=== PATIENT | male | born 2000 | race Caucasian/White ===

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

== ENCOUNTER 2022-10-26 23:11 | Emergency (ER) | payer MEDICAID, SELFPAY ==
[2022-10-26 23:13] VITALS: BP 135/82; PULSE 90; RESP 16; TEMP 35.8; O2SAT 97; BMI 46.5
[2022-10-26 23:16] VITALS: BP 135/82; PULSE 90; RESP 16; TEMP 35.8; O2SAT 97
--- NOTE | 2022-10-27 01:08 | EDS_ITS ---
HPI History of Present Illness Chief Complaint: Male Pain/Injury Informant: patient Narrative Narrative: Patient is a 22-year-old male with no significant past medical history. He states that a few hours prior to arrival he was having sexual intercourse with his . He states that during the course of this he somehow sustained an injury to his penis and he noticed that there was blood present. He denies any history of bleeding disorder or blood thinner use but with trauma to the penis and bleeding he was concerned and therefore comes in for evaluation. PFSH PFSH Medical History no medical history no medical history Home Medications albuterol 90 mcg/actuation aerosol inhaler 3 mcg inhalation Q4H PRN PRN sob 04/06/21 [History Last Taken Unknown] Allergy/AdvReac Type Severity Reaction Status Date / Time No Known Allergies Allergy Verified 10/26/22 23:13 Family History no significant family his Social History Smoking Status: Current some day smoker tobacco type: cigarettes ROS ROS ED Constitutional Constitutional ED: Denies chills or fever(s) ENT ENT ED: Denies sore throat Cardiovascular Cardiovascular: Denies chest pain Respiratory/Chest Respiratory/Chest: Denies cough or dyspnea Gastrointestinal Gastrointestinal: Denies abdominal pain, diarrhea, nausea or vomiting Genitourinary Genitourinary ED: Reports other Details: Positive penile bleeding ; Denies dysuria or hematuria Musculoskeletal Musculoskeletal: Denies myalgias Integumentary Denies rash Neurologic Neurologic: Denies headache(s) Hematologic/Lymphatic Hematologic/Lymphatic: Denies easy bleeding or easy bruising EXAM Physical Exam Const Vital Signs: 10/26/22 23:13 10/26/22 23:16 Temperature 96.5 F L 96.5 F L Temperature Source Temporal Temporal Pulse Rate 90 90 Respiratory Rate 16 16 Blood Pressure 135/82 H 135/82 H Blood Pressure Mean 99 99 Pulse Ox 97 97 Oxygen Delivery Method Room Air Room Air Positive well nourished, well developed and obese General Appearance ED: well developed Nutritional Appearance: obese HEENT HEENT Narrative: Normocephalic atraumatic Eyes PERRL and EOMs intact bilaterally General Eye ED: Negative for pale conjunctiva Neck supple Resp normal respiratory effort and clear to auscultation bilaterally Cardio regular rate and regular rhythm Narrative: Normal uncircumcised male. There is no blood or discharge from the urethral meatus. No testicular masses or swelling. No secondary changes to suggest Johnson's gangrene. Foreskin was retracted and there is a dermal layer triangular shaped laceration along the volar aspect of the penile shaft and head with minimal ooze of blood and no foreign body. Wound is approximately 1 cm in size. Remainder of the exam is normal Extremity normal to inspection Neuro oriented x3 and CN's II-XII intact bilaterally Sensorium / Orientation: alert Psych mental status grossly normal Skin no rashes or lesions noted Skin Narrative: Dermal layer laceration to the penis as documented above MDM MDM MDM Narrative Medical decision making narrative: Patient presented to the ER with stable vitals. He reported blood from the penis but on exam there is no blood at the urethral meatus and no signs of testicular masses or infection. Physical exam did document there was a super ficial laceration along the shaft and head of the penis where the foreskin attaches and this correlates with the fact symptoms occurred during vigorous sexual activity. I discussed with patient the potential of throwing a few sutures into the area to resolve the laceration and bleeding but he does not want that performed. Therefore at this time he will be given Surgicel to place over top the wound and help with coagulation. He understands that the wound will heal by secondary intention but he will need to refrain from sexual activity and/or masturbation for the next 1-2 weeks. Patient states he is agreeable to this plan of care. He does not have signs of phimosis or paraphimosis or testicular infection and the bleeding is external not coming from the bladder or urethra prostate and therefore there is no need for further work-up and he is otherwise safe for discharge. History & Record Review Discussion w/independent historian: Patient Discharge Plan Triage Chief Complaint: Male Pain/Injury ED Provider: Salomon Graham Dx/Rx/DC Orders Clinical Impression: Laceration of penis Instructions: ED Laceration, Old: Not Sutured Prescriptions: No Action albuterol 90 mcg/actuation Aerosol 3 mcg INHALATION Q4H PRN PRN (Reason: sob) Primary Care Provider: Maurisio Ramirez Referrals: Maurisio Ramirez MD [Primary Care Provider] - Activity Restrictions/Additional Instructions: Allow the Gelfoam/Surgicel to stay in place for the next few hours. Shower in the morning and wash it off and if bleeding persists she may use more Gelfoam as needed. The area of injury/skin tear will heal on its own over the course of the next 1 to 2 weeks but he need to refrain from sexual activity and/or masturbation during this time. If you have any further concerns or worsening symptoms please return to the ER for repeat evaluation Disposition Disposition: Home, Self Care Discharge Date/Time: 10/27/22 01:18
[2022-10-27] MEDS: Gelfoam 12-7 MM Sponge (1) 1 EACH TOPICAL (01:17)
== END 2022-10-27 01:18 | disposition home or self-care (01) ==
PROVIDERS: Emergency Provider Emergency Medicine; PCP Family Medicine; Visit Provider Emergency Medicine
DX: S31.21XA Laceration without foreign body of penis, initial encounter (principal); F17.210 Nicotine dependence, cigarettes, uncomplicated; E66.9 Obesity, unspecified; X58.XXXA Exposure to other specified factors, initial encounter
CPT/HCPCS: 99283

== ENCOUNTER 2023-02-06 10:13 | Emergency (ER) | payer MEDICAID, SELFPAY ==
[2023-02-06 10:15] VITALS: BP 135/66; PULSE 89; RESP 14; TEMP 36.3; O2SAT 98; BMI 45.8
--- NOTE | 2023-02-06 10:40 | EX.ED.DYSGE1 ---
HPI History of Present Illness Chief Complaint: Dizziness Informant: patient Narrative Narrative: 22-year-old male presenting to the emergency room with dizziness. Patient states that over the past 4 days he has had cough and some nasal congestion. He notes 1 bout of diarrhea. States that he woke this morning and felt like a truck that hit him . He does not know about any fever. He denies sore throat or vomiting. He was sitting on his dresser at the end of the bed putting his boots on when he states that his right leg was tingling when he went to stand up he got dizzy and his whole right side was tingling. 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 He denies any vertiginous symptoms. He describes the dizziness is more of a lightheaded sensation. He states that his ears typically have cerumen in them but he has not had any change in hearing. PFSH PFSH Home Medications albuterol 90 mcg/actuation aerosol inhaler 3 mcg inhalation Q4H PRN PRN sob 04/06/21 [History Last Taken Unknown] Allergy/AdvReac Type Severity Reaction Status Date / Time No Known Allergies Allergy Verified 02/06/23 10:14 Social History Smoking Status: Current some day smoker tobacco type: cigarettes ROS ROS ED ROS Narrative Dizziness lightheadedness Constitutional Constitutional ED: Denies chills, fever(s) or weight loss Eyes Eyes: Denies change in vision or diplopia ENT ENT ED: Reports rhinorrhea; Denies ear pain or sore throat Cardiovascular Cardiovascular: Denies chest pain, orthopnea, palpitations or racing heartbeat Respiratory/Chest Respiratory/Chest: Reports cough; Denies dyspnea or orthopnea Gastrointestinal Gastrointestinal: Denies abdominal pain, diarrhea, nausea or vomiting Genitourinary Genitourinary ED: Denies dysuria, hematuria or urinary frequency Musculoskeletal Musculoskeletal: Denies arthralgias or myalgias Integumentary Denies abscess or rash Neurologic Neurologic: Reports paresthesias; Denies headache(s) or weakness Psychiatric Psychiatric: Denies anxiety, depression, suicidal ideation or suicidal thoughts Endocrine Endocrinology: Denies polydipsia, polyphagia or polyuria Allergic/Immunologic Allergic/Immunologic ED: Denies mouth swelling, tongue swelling or urticaria EXAM Physical Exam Const Vital Signs: 02/06/23 10:15 02/06/23 10:57 02/06/23 10:58 Temperature 97.3 F L Temperature Source Temporal Pulse Rate 89 77 Respiratory Rate 14 16 Respiratory Effort Normal Non-Labored Respiratory Pattern Normal Blood Pressure 135/66 H Blood Pressure Mean 89 Pulse Ox 98 100 Oxygen Delivery Method Room Air Room Air Positive well nourished, well developed and obese General Appearance ED: well developed Nutritional Appearance: obese HEENT Reports normocephalic, head/scalp atraumatic and moist mucous membranes HEENT Narrative: Bilateral cerumen impaction Nasal congestion Eyes PERRL and EOMs intact bilaterally Neck no lymphadenopathy, supple and no JVD Resp normal respiratory effort and clear to auscultation bilaterally Cardio regular rate, regular rhythm and no murmurs GI normal to inspection, nondistended, normoactive bowel sounds and non-tender Palpation: soft Back/Spine no CVA tenderness and normal ROM Extremity normal to inspection General Extremety ED: Negative for edema General Extremity: Negative for edema Neuro oriented x3 and CN's II-XII intact bilaterally Sensorium / Orientation: alert Motor Exam: strength 5/5 throughout Psych mental status grossly normal Mood & Affect: Negative for depressed or tearful Skin no rashes or lesions noted and no wounds MDM MDM MDM Narrative Medical decision making narrative: White count 5.9 with hemoglobin 16.2. BMP shows a glucose of 95. Normal electrolytes. Patient's COVID and influenza are negative. RSV is positive. Clinically I think the patient probably experienced some vertigo or disequilibrium related to the nasal congestion which is due to the RSV infection. At this point I believe his treatment will be supportive care. Follow-up as needed return if worsening History & Record Review Discussion w/independent historian: Patient Lab Data Attestation: I reviewed the patient's lab results. Labs: Laboratory Results - last 24 hr 02/06/23 02/06/23 10:49 10:52 WBC 5.9 RBC 5.77 Hgb 16.2 Hct 49.1 MCV 85.1 MCH 28.1 MCHC 33.0 RDW Std Deviation 41.5 RDW Coeff of [place]yl[place] 13.4 Plt Count 205 MPV 11.8 Immature Gran % (Auto) 0.500 Neut % (Auto) 67.1 Lymph % (Auto) 14.2 L [place] % (Auto) 12.4 H Eos % (Auto) 5.1 H Baso % (Auto) 0.7 Absolute Neuts (auto) 4.0 Absolute Lymphs (auto) 0.84 Nucleated RBC % 0 Sodium 139 Potassium 4.3 Chloride 106 Carbon Dioxide 31.0 Anion Gap 2 L BUN 13 Creatinine 0.86 Estim Creat Clear Calc 119.19 Est GFR (MDRD) Af Amer 144 Est GFR (MDRD) Non-Af 119 BUN/Creatinine Ratio 15.1 Glucose 95 Calcium 8.9 Discharge Plan Triage Chief Complaint: Dizziness ED Provider: Akbar Villafuerte Dx/Rx/DC Orders Clinical Impression: RSV infection, Dizziness Instructions: RSV (Respiratory Syncytial Virus) Prescriptions: No Action albuterol 90 mcg/actuation Aerosol 3 mcg INHALATION Q4H PRN PRN (Reason: sob) Primary Care Provider: Maurisio Ramirez Referrals: Maurisio Ramirez MD [Primary Care Provider] - As Needed Disposition Disposition: Home, Self Care
[2023-02-06 10:57] VITALS: PULSE 77; RESP 16; O2SAT 100
[2023-02-06 11:04] LABS: Absolute Lymphocyte Count 0.84 X10^3/uL (0.83-4.51); Basophil# 0.04 X10^3/uL; Basophil% 0.7 % (0-1); Eosinophils% 5.1 % (0-5); Hematocrit 49.1 % (40-54); Hemoglobin 16.2 g/dL (13.0-16.5); Lymphocyte # 0.84 X10^3/ul (0.83-4.51); Lymphocyte % 14.2 % (19-41); Mean Corpuscular Hgb 28.1 pg (27.0-32.0); Mean Corpuscular Volume 85.1 fL (80-94); Mean Platelet Vol. 11.8 fl (6.2-12.0); Monocyte# 0.73 X10^3/uL; Monocyte% 12.4 % (0-10); NRBC Flagged by Analyzer 0 % (0-5); Neutrophil # 3.96 X10^3/uL (2.7-7.7); Neutrophil % 67.1 % (47-70); Platelet Count 205 K/mm3 (150-450); RBC Distribution Width CV 13.4 % (11.6-14.6); RBC Distribution Width SD 41.5 fl (35.1-43.9); Red Blood Count 5.77 M/mm3 (4.6-6.2); White Blood Count 5.9 K/mm3 (4.4-11.0)
[2023-02-06 11:13] LABS: Anion Gap 2 (5-15); BUN 13 mg/dL (7-18); BUN/Creat Ratio 15.1 RATIO (10-20); Calcium,Total 8.9 mg/dL (8.5-10.1); Chloride 106 mmol/L (98-107); Creatinine, Serum 0.86 mg/dL (0.70-1.30); EST Glomerular Filtration Rate 119 mL/min (>60); Est Glom Filt Rate - Afr Amer 144 mL/min (>60); Estimated Creatinine Clearance 119.19 ml/min; Glucose 95 mg/dL (74-106); Potassium 4.3 mmol/L (3.5-5.1); Sodium Level 139 mmol/L (136-145)
--- OUTSIDE RECORDS SUMMARY | 2023-02-06 11:27 | XMS RPT_ITS | CCD ---
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 Text: CC: Patient presents with: Cough: Runny nose x 2 days; upper back pain x 2 weeks HPI Osmin Chairez is a 22 year old male who presents today for above. Respiratory symptoms for 3 days Associated symptoms includes nasal congestion, rhinorrhea, cough, and fatigue. Denies headache, fever, ear pain, wheezing, and dyspnea. Treatments tried include nothing so far. Sick contacts: no. History of asthma, frequent episodes of bronchitis, chronic bronchitis, bronchiectasis or COPD: Yes asthma Smoker: yes Seasonal/environmental allergies: Yes He also reports pain across the upper back/shoulder area x 2 weeks. He has a very physical job requiring heavy lifting. Denies injury. Took ibuprofen for the first time last night with relief of pain. He has a history of arthritis in both shoulders. Review of Systems See HPI PAST MEDICAL HISTORY Diagnosis Date Obesity 06/12/2012 PMH - PAST MEDICAL HISTORY OF pyloric stenosis Strabismic amblyopia Unspecified asthma(493.90) PAST SURGICAL HISTORY Procedure Laterality Date KNEE SURGERY HX 07/2015 Dr. Kervin ANTHONY PAST SURGICAL HISTORY OF 05/13 repair pyloric stenosis PAST SURGICAL HISTORY OF 01/09/09 left eye surgery TYMPANOSTOMY LOCAL/TOPICAL ANESTHESIA 12/10/05 ALLERGIES Patient has no known allergies. MEDICATIONS dicyclomine (BENTYL) 20 mg tablet Take 1 tablet by mouth four times a day as needed for up to 7 days. cetirizine (ZYRTEC) 10 mg tablet Take 1 tablet by mouth once daily. (Patient not taking: Reported on 12/04/2020) FAMILY HISTORY Problem Relation Age of Onset other ([place]) Father age 44 Hypertension Paternal Grandmother Diabetes Paternal Grandmother Asthma Paternal Grandfather Seizures Paternal Grandfather aunt other (gallbladder) Paternal Grandfather maternal and paternal side Social History Tobacco Use Smoking status: Some Days Types: Cigarettes Passive exposure: Yes Smokeless tobacco: Never Tobacco comments: mother, father, and sister smoke inside 03/06/2022- smokes 2 cigarettes every other day Vaping Use Vaping Use: Never used Substance Use Topics Alcohol use: Not Currently Drug use: No BP 118/62 Pulse 87 Temp (!) 35.9 ?C (96.7 ?F) Resp 20 Wt 124.3 kg (274 lb) SpO2 97% BMI 44.22 kg/m? Physical Exam Constitutional: General: He is not in acute distress. Appearance: He is not ill-appearing. HENT: Right Ear: Tympanic membrane, ear canal and external ear normal. Left Ear: Tympanic membrane, ear canal and external ear normal. Nose: Nose normal. Mouth/Throat: Mouth: Mucous membranes are moist. Pharynx: Oropharynx is clear. Eyes: Conjunctiva/sclera: Conjunctivae normal. Cardiovascular: Rate and Rhythm: Normal rate and regular rhythm. Heart sounds: Normal heart sounds. No murmur heard. Pulmonary: Effort: Pulmonary effort is normal. Breath sounds: Normal breath sounds. No wheezing, rhonchi or rales. Musculoskeletal: Right shoulder: No swelling or deformity. Normal range of motion. Left shoulder: No swelling or deformity. Normal range of motion. Arms: Cervical back: Neck supple. Comments: Tenderness along shoulders posteriorly and upper back posteriorly Lymphadenopathy: Cervical: No cervical adenopathy. Neurological: Mental Status: He is alert. ASSESSMENT/PLAN: 1. Acute pain of both shoulders - ICD9: 719.41, ICD10: M25.511, M25.512 (primary diagnosis) Musculoskeletal pain secondary to overuse Take ibuprofen 3 times a day for the next few days. Also discussed heat, ice, massage and topical medications Follow-up with PCP in 1-2 weeks if no improvement or sooner if worsening 2. Viral URI with cough - ICD9: 465.9, ICD10: J06.9 - Discussed viral etiology and rationale for treatment. - Symptomatic treatment with prn analgesia - Supportive care with fluids and rest - The patient may also use OTC cough and cold meds as needed. - Follow up in 7 to 10 days if symptoms persist or sooner if worsening of symptoms Prescription instructions reviewed with patient as applicable. Potential red flag symptoms discussed with the patient. Reviewed appropriate action plan to take if red flag symptoms occur. Patient agreeable to treatment plan. Ashley Hu APRN.CNP [facility] 11-16-2022 Instructions Ashley Hu APRN.CNP - 11/16/2022 2:41 PM EDT Take ibuprofen 600 mg three times a day for the next 3 to 4 days, then as needed. Follow-up with your primary care provider in 1-2 weeks if the shoulder pain does not improve. documented in this encounter [facility] 11-16-2022 History of Presen t illness Narrative Images from the original note were not included. CC: Patient presents with: Cough: Runny nose x 2 days; upper back pain x 2 weeks HPI Osmin Chairez is a 22 year old male who presents today for above. Respiratory symptoms for 3 days Associated symptoms includes nasal congestion, rhinorrhea, cough, and fatigue. Denies headache, fever, ear pain, wheezing, and dyspnea. Treatments tried include nothing so far. Sick contacts: no. History of asthma, frequent episodes of bronchitis, chronic bronchitis, bronchiectasis or COPD: Yes asthma Smoker: yes Seasonal/environmental allergies: Yes He also reports pain across the upper back/shoulder area x 2 weeks. He has a very physical job requiring heavy lifting. Denies injury. Took ibuprofen for the first time last night with relief of pain. He has a history of arthritis in both shoulders. Review of Systems See HPI PAST MEDICAL HISTORY Diagnosis Date Obesity 06/12/2012 PMH - PAST MEDICAL HISTORY OF pyloric stenosis Strabismic amblyopia Unspecified asthma(493.90) PAST SURGICAL HISTORY Procedure Laterality Date KNEE SURGERY HX 07/2015 Dr. Galeana [facility] PAST SURGICAL HISTORY OF 05/13 repair pyloric stenosis PAST SURGICAL HISTORY OF 01/09/09 left eye surgery TYMPANOSTOMY LOCAL/TOPICAL ANESTHESIA 12/10/05 ALLERGIES Patient has no known allergies. MEDICATIONS dicyclomine (BENTYL) 20 mg tablet Take 1 tablet by mouth four times a day as needed for up to 7 days. cetirizine (ZYRTEC) 10 mg tablet Take 1 tablet by mouth once daily. (Patient not taking: Reported on 12/04/2020) FAMILY HISTORY Problem Relation Age of Onset other ([place]) Father age 44 Hypertension Paternal Grandmother Diabetes Paternal Grandmother Asthma Paternal Grandfather Seizures Paternal Grandfather aunt other (gallbladder) Paternal Grandfather maternal and paternal side Social History Tobacco Use Smoking status: Some Days Types: Cigarettes Passive exposure: Yes Smokeless tobacco: Never Tobacco comments: mother, father, and sister smoke inside 03/06/2022- smokes 2 cigarettes every other day Vaping Use Vaping Use: Never used Substance Use Topics Alcohol use: Not Currently Drug use: No BP 118/62 Pulse 87 Temp (!) 35.9 C (96.7 F) Resp 20 Wt 124.3 kg (274 lb) SpO2 97% BMI 44.22 kg/m Physical Exam Constitutional: General: He is not in acute distress. Appearance: He is not ill-appearing. HENT: Right Ear: Tympanic membrane, ear canal and external ear normal. Left Ear: Tympanic membrane, ear canal and external ear normal. Nose: Nose normal. Mouth/Throat: Mouth: Mucous membranes are moist. Pharynx: Oropharynx is clear. Eyes: Conjunctiva/sclera: Conjunctivae normal. Cardiovascular: Rate and Rhythm: Normal rate and regular rhythm. Heart sounds: Normal heart sounds. No murmur heard. Pulmonary: Effort: Pulmonary effort is normal. Breath sounds: Normal breath sounds. No wheezing, rhonchi or rales. Musculoskeletal: Right shoulder: No swelling or deformity. Normal range of motion. Left shoulder: No swelling or deformity. Normal range of motion. Arms: Cervical back: Neck supple. Comments: Tenderness along shoulders posteriorly and upper back posteriorly Lymphadenopathy: Cervical: No cervical adenopathy. Neurological: Mental Status: He is alert. ASSESSMENT/PLAN: 1. Acute pain of both shoulders - ICD9: 719.41, ICD10: M25.511, M25.512 (primary diagnosis) Musculoskeletal pain secondary to overuse Take ibuprofen 3 times a day for the next few days. Also discussed heat, ice, massage and topical medications Follow-up with PCP in 1-2 weeks if no improvement or sooner if worsening 2. Viral URI with cough - ICD9: 465.9, ICD10: J06.9 - Discussed viral etiology and rationale for treatment. - Symptomatic treatment with prn analgesia - Supportive care with fluids and rest - The patient may also use OTC cough and cold meds as needed. - Follow up in 7 to 10 days if symptoms persist or sooner if worsening of symptoms Prescription instructions reviewed with patient as applicable. Potential red flag symptoms discussed with the patient. Reviewed appropriate action plan to take if red flag symptoms occur. Patient agreeable to treatment plan. Ashley Hu APRN.SYLVAIN documented in this encounter [facility] 09-05-2022 Hospital Discharg e instructions Patient Education 09/05/2022 10:07:04 What is Peripheral Neuropathy? What is Peripheral Neuropathy? Peripheral neuropathy symptoms often start in the toes and move up the foot. Peripheral neuropathy is a disease of the nerves. It most often starts in your feet and may also eventually affect the arms. It can affect sensory, motor, or both functions. It may cause pain or make you unable to sense pain. Sometimes, weakness occurs as well. Lack of pain and weakness makes you more likely to injure yourself without knowing it. But you can learn ways to protect your feet from injury. When nerves are diseased Nerves in your feet carry signals to your brain. Your brain reads those signals and interprets them as sensations. When nerves in your feet are diseased, signals may be disrupted or changed. The result may be a lack of feeling (numbness) in your feet or other symptoms, such as tingling or pain. Symptoms mask pain Symptoms of peripheral neuropathy usually start in your toes. The symptoms slowly spread up your feet and legs as more nerve is affected. These symptoms may decrease sensation in your feet or mask pain. Without pain, you may not notice a cut or even a bone fracture. Cuts may become infected. Fractures may heal poorly and lead to foot deformity. Common causes of peripheral neuropathy Some common causes of peripheral neuropathy include: Diabetes or other endocrine disorders Toxins (such as alcohol) Nutritional deficiencies (such as Vitamin B-12) Kidney disease Injury Repetitive stress (such as carpal tunnel syndrome) Autoimmune disease Cancer and tumors Chemotherapy cancer treatment Arthritis Advanced age Neurological disorders Infection Diagnosis and treatment Diagnosis of peripheral neuropathy includes a complete history and physical exam. Tests include blood tests and imaging often help find the cause. Special nerve tests are often helpful including nerve conduction velocity studies (NCV), and electromyography (EMG). NCV helps find evidence of poor conduction of nerve signals. EMG helps tell whether symptoms are caused by muscle or nerve disorders. Treatment focuses on treating the underlying disorder and treating the symptoms using medicines, injections, TENS (transcutaneous electrical nerve stimulation), acupuncture, massage, and others. 2090-0090 [employer]. [address] [place] [address], [place] [address]. All rights reserved. This information is not intended as a substitute for professional medical care. Always follow your healthcare professional's instructions. Follow Up Care 09/05/2022 08:28:41 With:DO QUITA HUFF DO Address: [facility] [address] [address] When:2-[address] [facility] Marydi Ford 09-05-2022 Note Discharge Instructions Thank you for allowing [facility] to assist you with your healthcare needs. The following is important discharge information regarding your hospital visit. Diagnosis from Today's Visit Numbness/tingling Peripheral neuropathy What to Do Next Instructions from Your Care Team Discharge Return to Work, School, or Sports (Return to Work, School, or Sports) - Ordered -- 09/05/22, 09/06/22, May return to: work, 09/05/22 10:02:00 EDT Post Acute Orders No qualifying data available. You Need to Schedule the Following Appointments Follow Up with DO QUITA HUFF DO When Within 2-4 days Where: [address] [place] [phone] Allergies NKA Medications Please ask your primary doctor or pharmacist before taking any other medication not listed, including over the counter drugs, herbal medications, vitamins and or supplements as they may interact with your home medications. What How Much When Instructions Last Dose New naproxen (Anaprox-DS 550 mg oral tablet) 1 tab(s) by mouth Every 12 hours as needed for as needed for pain Printed Prescription Please take this list to your next doctor s visit. Bring all medications you take, including over the counter medications, herbals and other supplements with you to your doctor s visit. Patients and families are reminded to discard old lists and to update any records with all medication providers or retail pharmacies. Education Materials What is Peripheral Neuropathy? Peripheral neuropathy symptoms often start in the toes and move up the foot. Peripheral neuropathy is a disease of the nerves. It most often starts in your feet and may also eventually affect the arms. It can affect sensory, motor, or both functions. It may cause pain or make you unable to sense pain. Sometimes, weakness occurs as well. Lack of pain and weakness makes you more likely to injure yourself without knowing it. But you can learn ways to protect your feet from injury. When nerves are diseased Nerves in your feet carry signals to your brain. Your brain reads those signals and interprets them as sensations. When nerves in your feet are diseased, signals may be disrupted or changed. The result may be a lack of feeling (numbness) in your feet or other symptoms, such as tingling or pain. Symptoms mask pain Symptoms of peripheral neuropathy usually start in your toes. The symptoms slowly spread up your feet and legs as more nerve is affected. These symptoms may decrease sensation in your feet or mask pain. Without pain, you may not notice a cut or even a bone fracture. Cuts may become infected. Fractures may heal poorly and lead to foot deformity. Common causes of peripheral neuropathy Some common causes of peripheral neuropathy include: Diabetes or other endocrine disorders Toxins (such as alcohol) Nutritional deficiencies (such as Vitamin B-12) Kidney disease Injury Repetitive stress (such as carpal tunnel syndrome) Autoimmune disease Cancer and tumors Chemotherapy cancer treatment Arthritis Advanced age Neurological disorders Infection Diagnosis and treatment Diagnosis of peripheral neuropathy includes a complete history and physical exam. Tests include blood tests and imaging often help find the cause. Special nerve tests are often helpful including nerve conduction velocity studies (NCV), and electromyography (EMG). NCV helps find evidence of poor conduction of nerve signals. EMG helps tell whether symptoms are caused by muscle or nerve disorders. Treatment focuses on treating the underlying disorder and treating the symptoms using medicines, injections, TENS (transcutaneous electrical nerve stimulation), acupuncture, massage, and others. [id number] [employer]. [address] [place] [address]. All rights reserved. This information is not intended as a substitute for professional medical care. Always follow your healthcare professional's instructions. Additional Information VACCINATE! IT SAVES LIVES! Members of the community who have not yet received the COVID-19 vaccine and would like to receive it can visit one of [facility] vaccine clinics. There are many vaccine clinic locations within the [facility]. For locations and available times, please visit [email or web address] [email or web address] It is important to note that some COVID mobile vaccine clinics are held outdoors and may be canceled in rainy or stormy conditions. To learn more about pediatric vaccinations (ages 5-11), we invite you to visit the [facility] webpage. [email or web address].[email or web address]/p [email or web address]-Yxmqr-Oiccludstwr-Freq [email or web address]-[email or web address] To learn more about the COVID-19 vaccine, we invite you to visit the CDC website for a list of frequently asked questions. https://www.cdc.gov/coronavirus/ 2019-ncov/vaccines/faq.html [facility] Patient Portal Access Instructions: Stay connected with your healthcare team and access your personal medical information anytime with the [facility] Patient Portal. If you would like a full copy of your medical records please contact the [facility] Medical Records Department Friday through Friday between 8a.m. and 4:30p.m. Please follow the directions below to access the portal: 1.Access the email account you provided upon registration to the hospital.2.Look for an invitation email from [facility].3.Open the email and access the invitation link: Accept Invitation to [facility].Fill in the required rees to create your account. Sign into [email or web address] with your username and password that you created in the above steps to stay up to date. You can then view a summary of results, a summary of your visits, and the ability to download your summaries to your computer or send the information securely to a physician. Remember that your healthcare information is confidential, so carefully consider who you will allow to register on the [facility] Patient Portal for access to your information. You can also access the [facility] Patient Portal on the [employer] good. Simply click on Health Records under Health Data and then click on the [employer] logo. HOW TO SAFELY DISPOSE OF PRESCRIPTION MEDICATIONS Please use one of the following methods to safely dispose of your unused medications. 1.Use a drug disposal kit: the drug disposal pouch allows you to safely discard your old and unused drugs. Ask your nurse to give you one when you are discharged.2.Visit a local take-back location: Many local pharmacies and police departments have programs that collect old and unwanted prescription drugs. Call your local pharmacy or go to http://[employer]/7W5Bo0e to find one close to you.3.Make use of household items: Use cat litter or old coffee grounds to dispose medications if other options are not available. Mix your drugs with these household products, seal them in an airtight container and throw it into the garbage. Call [facility]: [phone] to be sure your drugs can be disposed of in this way. Some medicines may require a different approach.4.Never flush your medications down the toilet. IF YOU HAVE BEEN PRESCRIBED AN OPIOIDS FOR PAIN If you have been prescribed an opioid (such as hydrocodone, oxycodone or morphine), it is critical to understand the possible side effects and risks of opioid pain medications. Even when taken as directed, opioids can have several side effects including: Tolerance, meaning you might need to take more of a medication for the same pain relief. Nausea, vomiting and/or constipation. Sleepiness, dizziness, dry mouth, confusion, depression or itching. Physical dependence, meaning you have withdrawal symptoms when a medication is stopped ? this can develop within a few days. KNOW YOUR RESPONSIBILITIES It is important to know exactly how much and how often to take the opioid pain medications you are prescribed. Never take opioids in higher amounts or more often than prescribed. Do not combine opioids with alcohol or other drugs that cause drowsiness, such as benzodiazepines, also known as benzos, including diazepam and alprazolam, muscle relaxants or sleep aids. Never sell or share prescription opioids. This is illegal. Store opioids in a secure place and out of reach of others (including children, family, friends and visitors). The last page(s) of this document has been signed and retained as a CHART COPY Signatures Patient Education Materials What is Peripheral Neuropathy? Medication Leaflets My discharge plan and instructions have been reviewed and explained to me and IMIHAELA AUSTIN G understand my current condition and have read and understand these discharge instructions. I have received a written copy of the plan/instructions. If I have questions, I am aware that I should contact my doctor. Patient/Drug Abuse Worker Signature: Date/Time: Relationship to Patient: Witness Name/Signature: Date/Time: [facility] 09-05-2022 Note ORIGINAL EXAMINATION: THREE XRAY VIEWS OF THE LEFT KNEE 09/05/2022 9:12 am COMPARISON: None. HISTORY: ORDERING SYSTEM PROVIDED HISTORY: Reason for Exam: pain FINDINGS: There is no acute fracture or dislocation. The joint spaces of the knee are well maintained without significant degenerative changes. Question small suprapatellar joint effusion. There are multiple osteochondromas/exostoses seen adjacent to the knee joint involving the femur, proximal tibia, and posterior aspect of the proximal fibula. Question lucent lesion within the distal femur. A few linear opaque densities are seen of the medial aspect of the distal femur. These appear likely surgical in nature. IMPRESSION: No acute fracture or dislocation or significant degenerative changes. 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 Correlate with patient history. Consider outpatient MRI of the knee for further evaluation to evaluate for any atypical change. Interpreted by: Edwar Flores MD Preliminary Report By: Edwar Flores MD Electronically signed By Edwar Flores MD Dictated Date: 09/05/2022 9:28:42 AM Prelim Date: 09/05/2022 9:34:06 AM Sign Date: 09/05/2022 9:34:06 AM Ordering Provider: ABHINAV VÁZQUEZ [facility] 09-05-2022 Note ORIGINAL EXAMINATION: THREE XRAY VIEWS OF THE RIGHT ANKLE 09/05/2022 9:12 am COMPARISON: None. HISTORY: ORDERING SYSTEM PROVIDED HISTORY: Reason for Exam: pain FINDINGS: The underlying osseous structures appear well mineralized without evidence of fracture or dislocation. The ankle mortise is well maintained. Postsurgical screw is seen of the medial malleolus without evidence of failure or loosening. A few small exostoses are seen of the distal tibia and fibula. There is no significant soft tissue swelling. No radiopaque foreign body is seen. IMPRESSION: No acute process of the ankle is seen. 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 Interpreted by: Edwar Flores MD Preliminary Report By: Edwar Flores MD Electronically signed By Edwar Flores MD Dictated Date: 09/05/2022 9:27:49 AM Prelim Date: 09/05/2022 9:35:38 AM Sign Date: 09/05/2022 9:35:38 AM Ordering Provider: [facility] 09-04-2022 Note HNO ID: [id number] Author: Salazar Iverson APRN.ASSISTANT SOFTBALL COACH Service: ? Author Type: Nurse Practitioner Type: Progress Notes Filed: 09/04/2022 2:29 PM Note Text: Subjective HPI HPI Osmin Chairez is a 22 year old male who presents today for CC of cough. This started 3 weeks ago/improving. Has tried otc medication for relief. Symptoms are worsened by nothing. Risk factors hx of asthma. Leg numbness after hearing about fathers heart disease few weeks ago. Intermittent back pain. .Patient presents with: Cough: X 3 weeks PAST MEDICAL HISTORY Diagnosis Date Obesity 06/12/2012 PMH - PAST MEDICAL HISTORY OF pyloric stenosis Strabismic amblyopia Unspecified asthma(493.90) PAST SURGICAL HISTORY Procedure Laterality Date KNEE SURGERY HX 07/2015 Dr. Kervin ANTHONY PAST SURGICAL HISTORY OF 05/13 repair pyloric stenosis PAST SURGICAL HISTORY OF 01/09/09 left eye surgery TYMPANOSTOMY LOCAL/TOPICAL ANESTHESIA 12/10/05 ALLERGIES Patient has no known allergies. MEDICATIONS albuterol HFA (PROVENTIL HFA, VENTOLIN HFA) 90 mcg/actuation inhaler Inhale 2 Puffs as instructed every 4 hours as needed for wheezing/shortness of breath. SYMBICORT 160-4.5 mcg/actuation inhaler Inhale 2 Puffs as instructed twice daily. albuterol HFA (VENTOLIN HFA) 90 mcg/actuation inhaler Inhale 2 Puffs as instructed every 4 hours as needed for wheezing/shortness of breath (Use with aerochamber). ibuprofen (MOTRIN) 400 mg tablet Take 1 tablet by mouth every 6 hours as needed for pain. cetirizine (ZYRTEC) 10 mg tablet Take 1 tablet by mouth once daily. (Patient not taking: No sig reported) FAMILY HISTORY Problem Relation Age of Onset other ([place]) Father age 44 Hypertension Paternal Grandmother Diabetes Paternal Grandmother Asthma Paternal Grandfather Seizures Paternal Grandfather aunt other (gallbladder) Paternal Grandfather maternal and paternal side Social History Tobacco Use Smoking status: Some Days Types: Cigarettes Passive exposure: Yes Smokeless tobacco: Never Tobacco comments: mother, father, and sister smoke inside 03/06/2022- smokes 2 cigarettes every other day Vaping Use Vaping Use: Never used Substance Use Topics Alcohol use: Not Currently Drug use: No ROS Objective Blood pressure 122/78, pulse 95, temperature 36.6 ?C (97.9 ?F), resp. rate 21, weight 132.4 kg (291 lb 12.8 oz), SpO2 96 %. Physical Exam Constitutional: General: He is not in acute distress. Appearance: He is not toxic-appearing or diaphoretic. HENT: Head: Normocephalic and atraumatic. Cardiovascular: Rate and Rhythm: Normal rate and regular rhythm. Heart sounds: Normal heart sounds, S1 normal and S2 normal. Pulmonary: Effort: Pulmonary effort is normal. Breath sounds: Normal breath sounds. Neurological: Mental Status: He is alert and oriented to person, place, and time. Gait: Gait is intact. ASSESSMENT/PLAN: 1. Acute cough - ICD9: 786.2, ICD10: R05.1 (primary diagnosis) Steroid ordered Suspect post viral cough 2. History of asthma - ICD9: V12.69, ICD10: Z87.09 3. Leg numbness - ICD9: 782.0, ICD10: R20.0 Unclear etiology, back pain vs possible health anxiety. Go to ER for worsening s/s. Will schedule f/u with pcp. Salazar Iverson APRN.ASSISTANT SOFTBALL COACH [facility] 09-04-2022 History of Presen t illness Narrative Subjective HPI HPI Osmin Chairez is a 22 year old male who presents today for CC of cough. This started 3 weeks ago/improving. Has tried otc medication for relief. Symptoms are worsened by nothing. Risk factors hx of asthma. Leg numbness after hearing about fathers heart disease few weeks ago. Intermittent back pain. .Patient presents with: Cough: X 3 weeks PAST MEDICAL HISTORY Diagnosis Date Obesity 06/12/2012 PMH - PAST MEDICAL HISTORY OF pyloric stenosis Strabismic amblyopia Unspecified asthma(493.90) PAST SURGICAL HISTORY Procedure Laterality Date KNEE SURGERY HX 07/2015 Dr. Kervin ANTHONY PAST SURGICAL HISTORY OF 05/13 repair pyloric stenosis PAST SURGICAL HISTORY OF 01/09/09 left eye surgery TYMPANOSTOMY LOCAL/TOPICAL ANESTHESIA 12/10/05 ALLERGIES Patient has no known allergies. MEDICATIONS albuterol HFA (PROVENTIL HFA, VENTOLIN HFA) 90 mcg/actuation inhaler Inhale 2 Puffs as instructed every 4 hours as needed for wheezing/shortness of breath. SYMBICORT 160-4.5 mcg/actuation inhaler Inhale 2 Puffs as instructed twice daily. albuterol HFA (VENTOLIN HFA) 90 mcg/actuation inhaler Inhale 2 Puffs as instructed every 4 hours as needed for wheezing/shortness of breath (Use with aerochamber). ibuprofen (MOTRIN) 400 mg tablet Take 1 tablet by mouth every 6 hours as needed for pain. cetirizine (ZYRTEC) 10 mg tablet Take 1 tablet by mouth once daily. (Patient not taking: No sig reported) FAMILY HISTORY Problem Relation Age of Onset other ([place]) Father age 44 Hypertension Paternal Grandmother Diabetes Paternal Grandmother Asthma Paternal Grandfather Seizures Paternal Grandfather aunt other (gallbladder) Paternal Grandfather maternal and paternal side Social History Tobacco Use Smoking status: Some Days Types: Cigarettes Passive exposure: Yes Smokeless tobacco: Never Tobacco comments: mother, father, and sister smoke inside 03/06/2022- smokes 2 cigarettes every other day Vaping Use Vaping Use: Never used Substance Use Topics Alcohol use: Not Currently Drug use: No ROS Objective Blood pressure 122/78, pulse 95, temperature 36.6 C (97.9 F), resp. rate 21, weight 132.4 kg (291 lb 12.8 oz), SpO2 96 %. Physical Exam Constitutional: General: He is not in acute distress. Appearance: He is not toxic-appearing or diaphoretic. HENT: Head: Normocephalic and atraumatic. Cardiovascular: Rate and Rhythm: Normal rate and regular rhythm. Heart sounds: Normal heart sounds, S1 normal and S2 normal. Pulmonary: Effort: Pulmonary effort is normal. Breath sounds: Normal breath sounds. Neurological: Mental Status: He is alert and oriented to person, place, and time. Gait: Gait is intact. ASSESSMENT/PLAN: 1. Acute cough - ICD9: 786.2, ICD10: R05.1 (primary diagnosis) Steroid ordered Suspect post viral cough 2. History of asthma - ICD9: V12.69, ICD10: Z87.09 3. Leg numbness - ICD9: 782.0, ICD10: R20.0 Unclear etiology, back pain vs possible health anxiety. Go to ER for worsening s/s. Will schedule f/u with pcp. Salazar Iverson APRN.ASSISTANT SOFTBALL COACH documented in this encounter [facility] 03-06-2022 Note HNO ID: [id number] Author: Amelia Carmona RN Service: ? Author Type: Registered Nurse Type: Progress Notes Filed: 03/06/2022 1:32 PM Note Text: Per Dr. Chavez, Osmin was provided with Powerstep Original Inserts, size 10-10.5 Mens, and instructed/educated in its application, wear, and care. All questions were answered, and patient was able to demonstrate competence with the necessary skills to utilize the above equipment. Amelia Carmona RN [facility] 03-06-2022 Note HNO ID: [id number] Author: Addy Chavez Service: ? Author Type: Physician Type: Progress Notes Filed: 03/06/2022 1:31 PM Note Text: Consultation requested by Dr. Ortega for an opinion regarding left ankle injury. My final recommendations will be communicated back to the requesting physician by way of shared Medical record or letter to requesting physician via [place] mail. Initial Podiatric Office Visit: Chief Complaint: This 21 year old male who presents with chief complaint:left ankle injury HPI Patient presents to clinic for evaluation of left ankle. Patient states that yesterday, he fell on ice. He presented to the urgent care. Xrays were negative for fracture. He was placed in an air cast. He states his pain yesterday was 2/10. Today it is 0.5/10. patient states that with long duration standing, he does have some pain. He will often times experience knee pain with prolonged standing. PAIN EVALUATION 03/06/2022 1307 Pain Level: 2 Pain Location: Ankle-Left Duration Amount of Time: 1 Duration Units: Days Frequency: Intermittent Intervention/Comfort measure: Reposition;Distractions;Relaxati on Hemoglobin A1C (%) Date Value 01/13/2016 5.4 PCP: Rosalie Garnica MD PAST MEDICAL HISTORY Diagnosis Date Obesity 06/12/2012 PMH - PAST MEDICAL HISTORY OF pyloric stenosis Strabismic amblyopia Unspecified asthma(493.90) Current Outpatient Medications Medication Sig albuterol HFA (PROVENTIL HFA, VENTOLIN HFA) 90 mcg/actuation inhaler Inhale 2 Puffs as instructed every 4 hours as needed for wheezing/shortness of breath. albuterol HFA (VENTOLIN HFA) 90 mcg/actuation inhaler Inhale 2 Puffs as instructed every 4 hours as needed for wheezing/shortness of breath (Use with aerochamber). ibuprofen (MOTRIN) 400 mg tablet Take 1 tablet by mouth every 6 hours as needed for pain. SYMBICORT 160-4.5 mcg/actuation inhaler Inhale 2 Puffs as instructed twice daily. (Patient not taking: Reported on 03/06/2022) cetirizine (ZYRTEC) 10 mg tablet Take 1 tablet by mouth once daily. (Patient not taking: No sig reported) No current facility-administered medications for this visit. ALLERGIES No Known Allergies PAST SURGICAL HISTORY Procedure Laterality Date KNEE SURGERY HX 07/2015 Dr. Kervin ANTHONY PAST SURGICAL HISTORY OF 05/13 repair pyloric stenosis PAST SURGICAL HISTORY OF 01/09/09 left eye surgery TYMPANOSTOMY LOCAL/TOPICAL ANESTHESIA 12/10/05 FAMILY HISTORY Problem Relation Age of Onset other ([place]) Father age 44 Hypertension Paternal Grandmother Diabetes Paternal Grandmother Asthma Paternal Grandfather Seizures Paternal Grandfather aunt other (gallbladder) Paternal Grandfather maternal and paternal side Social History Tobacco Use Smoking status: Some Days Types: Cigarettes Passive exposure: Yes Smokeless tobacco: Never Tobacco comments: mother, father, and sister smoke inside 03/06/2022- smokes 2 cigarettes every other day Vaping Use Vaping Use: Never used Substance Use Topics Alcohol use: Not Currently Drug use: No REVIEW OF SYSTEMS GENERAL: Negative for Malaise, significant weight loss, fever RESPIRATORY: Negative for cough, wheezing and shortness of breath CARDIOVASCULAR: Negative for chest pain, leg swelling and palpitations GI: Negative for abdominal discomfort, blood in stools or black stools and change in bowel habits : Negative for dysuria, frequency and incontinence MUSCULOSKELETAL: Negative for joint pain or swelling, back pain, and muscle pain. SKIN: Negative for lesions, rash, and itching. HEMATOLOGY/LYMPHOLOGY Negative for prolonged bleeding, bruising easily, and swollen nodes. ENDOCRINE: Negative for cold or heat intolerance, polyuria, polydipsia and goiter. NEURO: negative Physical Exam: Constitutional: Pt is a well developed 21 year old male who is alert, oriented and cooperative Eyes: Following during examination. No redness or drainage. Respiratory: RR normal and nonlabored. Even breathing. No evidence of distress or shortness of breath. Psychology: Patient is engaged during conversation. Normal affect and mood. Does not appear depressed or anxious during encounter. Vascular: Dorsalis pedis and posterior tibial pulses palpable as b/l Capillary Fill time < 5 seconds to digits 1-5 b/l Skin temperature warm to warm proximal to distal b/l Hair growth present to digits Neurological: intact light touch/epicritic sensation b/l intact protective sensation no significant neurological deficits Dermatological: Nails 1-5 b/l appear normal. Webspaces clean and dry 1-4 b/l. Skin appears well hydrated and supple. good color, texture, turgor. No open lesions present. No callosities present. Musculoskeletal/Orthopaedic: Patient has no pain to palpation of b/l ankle Foot type is pronated structurally AJ ROM is full with knee extended and flexed 1st MPJ is full when loaded and no pain or cr (more content not included)... [facility] 03-06-2022 Note HNO ID: [id number] Author: Amelia Carmona RN Service: ? Author Type: Registered Nurse Type: Progress Notes Filed: 03/06/2022 1:31 PM Note Text: AMB ROOMING INTAKE FLOWSHEET DATA Pain Pain Level: 2 Pain Location: Ankle-Left Duration Amount of Time: 1 Duration Units: Days Frequency: Intermittent Intervention/Comfort measure: Reposition, Distractions, Relaxation. Patient presents with: Left Ankle - New, Follow Up, Pain Patient presents for Left ankle pain. States that yesterday morning he slipped on the ice and twisted his ankle. Continued to work yesterday and was seen in ED. X-Ray done and patient given aircast. Patient ambulatory with pain at a 1-2/10. [facility] 03-06-2022 History of Presen t illness Narrative Per Dr. Chavez, Osmin was provided with Powerstep Original Inserts, size 10-10.5 Mens, and instructed/educated in its application, wear, and care. All questions were answered, and patient was able to demonstrate competence with the necessary skills to utilize the above equipment. Amelia Carmona RN Consultation requested by Dr. Ortega for an opinion regarding left ankle injury. My final recommendations will be communicated back to the requesting physician by way of shared Medical record or letter to requesting physician via [place] mail. Initial Podiatric Office Visit: Chief Complaint: This 21 year old male who presents with chief complaint:left ankle injury HPI Patient presents to clinic for evaluation of left ankle. Patient states that yesterday, he fell on ice. He presented to the urgent care. Xrays were negative for fracture. He was placed in an air cast. He states his pain yesterday was 2/10. Today it is 0.5/10. patient states that with long duration standing, he does have some pain. He will often times experience knee pain with prolonged standing. PAIN EVALUATION 03/06/2022 1307 Pain Level: 2 Pain Location: Ankle-Left Duration Amount of Time: 1 Duration Units: Days Frequency: Intermittent Intervention/Comfort measure: Reposition;Distractions;Relaxati on Hemoglobin A1C (%) Date Value 01/13/2016 5.4 PCP: Rosalie Garnica MD PAST MEDICAL HISTORY Diagnosis Date Obesity 06/12/2012 PMH - PAST MEDICAL HISTORY OF pyloric stenosis Strabismic amblyopia Unspecified asthma(493.90) Current Outpatient Medications Medication Sig albuterol HFA (PROVENTIL HFA, VENTOLIN HFA) 90 mcg/actuation inhaler Inhale 2 Puffs as instructed every 4 hours as needed for wheezing/shortness of breath. albuterol HFA (VENTOLIN HFA) 90 mcg/actuation inhaler Inhale 2 Puffs as instructed every 4 hours as needed for wheezing/shortness of breath (Use with aerochamber). ibuprofen (MOTRIN) 400 mg tablet Take 1 tablet by mouth every 6 hours as needed for pain. SYMBICORT 160-4.5 mcg/actuation inhaler Inhale 2 Puffs as instructed twice daily. (Patient not taking: Reported on 03/06/2022) cetirizine (ZYRTEC) 10 mg tablet Take 1 tablet by mouth once daily. (Patient not taking: No sig reported) No current facility-administered medications for this visit. ALLERGIES No Known Allergies PAST SURGICAL HISTORY Procedure Laterality Date KNEE SURGERY HX 07/2015 Dr. Kervin ANTHONY PAST SURGICAL HISTORY OF 05/13 repair pyloric stenosis PAST SURGICAL HISTORY OF 01/09/09 left eye surgery TYMPANOSTOMY LOCAL/TOPICAL ANESTHESIA 12/10/05 FAMILY HISTORY Problem Relation Age of Onset other ([place]) Father age 44 Hypertension Paternal Grandmother Diabetes Paternal Grandmother Asthma Paternal Grandfather Seizures Paternal Grandfather aunt other (gallbladder) Paternal Grandfather maternal and paternal side Social History Tobacco Use Smoking status: Some Days Types: Cigarettes Passive exposure: Yes Smokeless tobacco: Never Tobacco comments: mother, father, and sister smoke inside 03/06/2022- smokes 2 cigarettes every other day Vaping Use Vaping Use: Never used Substance Use Topics Alcohol use: Not Currently Drug use: No REVIEW OF SYSTEMS GENERAL: Negative for Malaise, significant weight loss, fever RESPIRATORY: Negative for cough, wheezing and shortness of breath CARDIOVASCULAR: Negative for chest pain, leg swelling and palpitations GI: Negative for abdominal discomfort, blood in stools or black stools and change in bowel habits : Negative for dysuria, frequency and incontinence MUSCULOSKELETAL: Negative for joint pain or swelling, back pain, and muscle pain. SKIN: Negative for lesions, rash, and itching. HEMATOLOGY/LYMPHOLOGY Negative for prolonged bleeding, bruising easily, and swollen nodes. ENDOCRINE: Negative for cold or heat intolerance, polyuria, polydipsia and goiter. NEURO: negative Physical Exam: Constitutional: Pt is a well developed 21 year old male who is alert, oriented and cooperative Eyes: Following during examination. No redness or drainage. Respiratory: RR normal and nonlabored. Even breathing. No evidence of distress or shortness of breath. Psychology: Patient is engaged during conversation. Normal affect and mood. Does not appear depressed or anxious during encounter. Vascular: Dorsalis pedis and posterior tibial pulses palpable as b/l Capillary Fill time < 5 seconds to digits 1-5 b/l Skin temperature warm to warm proximal to distal b/l Hair growth present to digits Neurological: intact light touch/epicritic sensation b/l intact protective sensation no significant neurological deficits Dermatological: Nails 1-5 b/l appear normal. Webspaces clean and dry 1-4 b/l. Skin appears well hydrated and supple. good color, texture, turgor. No open lesions present. No callosities present. Musculoskeletal/Orthopaedic: Patient has no pain to palpation of b/l ankle Foot type is pronated structurally AJ ROM is full with knee extended and flexed 1st MPJ is full when loaded and no pain or crepitus are noted with ROM. MTJ, STJ are full and free of pain and crepitus. 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 History and physical examination performed. 2. XR reviewed with patient and interpreted today 3. Discussed ocd of talus. Patient has no pain. This is likely a chronic deformity. He has no pain. Discussed referral to ortho vs treating with bracing vs inserts. He has elected to use powerstep inserts 4. He does not have any instability of ankle on xray. In absence of instability or pain, I do not see him requiring therapy 5. Can f/u prn. Addy Chavez DPM Podiatry [address] [facility] [address] Dept: [phone] Dept AMB ROOMING INTAKE FLOWSHEET DATA Pain Pain Level: 2 Pain Location: Ankle-Left Duration Amount of Time: 1 Duration Units: Days Frequency: Intermittent Intervention/Comfort measure: Reposition, Distractions, Relaxation. Patient presents with: Left Ankle - New, Follow Up, Pain Patient presents for Left ankle pain. States that yesterday morning he slipped on the ice and twisted his ankle. Continued to work yesterday and was seen in ED. X-Ray done and patient given aircast. Patient ambulatory with pain at a . documented in this encounter [facility] 03-06-2022 Instructions Addy Chvaez - 03/06/2022 1:24 PM EST Powerstep Original Full length. Can purchase at [employer] here in [place], [employer] in [place] or [place]. Also can find in [place] in [facility]. Powersteps can also be purchased online, starting around $25.00 If you have a metatarsal or dancer pad for your feet apply the pad directly to the insole so you can interchange between your shoes. Find a shoe with a removable insole and take this out and replace with your powerstep insole. Always bring powersteps with you when shopping for shoes so that you can make sure that everything fits well together documented in this encounter [facility] 02-26-2022 Note HNO ID: [id number] Author: KYUNG Pickett Service: ? Author Type: Physician Lecturer Of Portuguese Type: Progress Notes Filed: 02/26/2022 12:02 PM Note Text: This note was created using [employer]. Subjective Osmin Chairez is a 21 year old male. HPI 21-year-old male with PMH of asthma presents for cough, congestion x3 days. Patient states that he has been having a runny nose and congestion for the past few days. He also has a dry cough. He states he has history of asthma, but ran out of his inhaler. He does not really feel like he is wheezing. He has no chest pain or shortness of breath. No vomiting or diarrhea. No sick contacts. PAST MEDICAL HISTORY Diagnosis Date Obesity 06/12/2012 PMH - PAST MEDICAL HISTORY OF pyloric stenosis Strabismic amblyopia Unspecified asthma(493.90) PAST SURGICAL HISTORY Procedure Laterality Date KNEE SURGERY HX 07/2015 Dr. Kervin [facility] PAST SURGICAL HISTORY OF 05/13 repair pyloric stenosis PAST SURGICAL HISTORY OF 01/09/09 left eye surgery TYMPANOSTOMY LOCAL/TOPICAL ANESTHESIA 12/10/05 ALLERGIES Patient has no known allergies. MEDICATIONS SYMBICORT 160-4.5 mcg/actuation inhaler Inhale 2 Puffs as instructed twice daily. albuterol HFA (VENTOLIN HFA) 90 mcg/actuation inhaler Inhale 2 Puffs as instructed every 4 hours as needed for wheezing/shortness of breath (Use with aerochamber). ibuprofen (MOTRIN) 400 mg tablet Take 1 tablet by mouth every 6 hours as needed for pain. albuterol HFA (PROVENTIL HFA, VENTOLIN HFA) 90 mcg/actuation inhaler Inhale 2 Puffs as instructed every 4 hours as needed for wheezing/shortness of breath. predniSONE (DELTASONE) 50 mg Take 1 tablet by mouth once daily for 5 days. cetirizine (ZYRTEC) 10 mg tablet Take 1 tablet by mouth once daily. (Patient not taking: Reported on 12/04/2020 ) FAMILY HISTORY Problem Relation Age of Onset other ([place]) Father age 44 Hypertension Paternal Grandmother Diabetes Paternal Grandmother Asthma Paternal Grandfather Seizures Paternal Grandfather aunt other (gallbladder) Paternal Grandfather maternal and paternal side Social History Tobacco Use Smoking status: Former Types: Cigarettes Passive exposure: Yes Smokeless tobacco: Never Tobacco comments: mother, father, and sister smoke inside Vaping Use Vaping Use: Never used Substance Use Topics Alcohol use: Not Currently Drug use: No Review of Systems Constitutional: Negative for chills and fever. HENT: Positive for congestion. Negative for sore throat. Respiratory: Positive for cough. Negative for shortness of breath. Gastrointestinal: Negative for diarrhea and vomiting. Objective BP 128/74 Pulse 100 Temp 36.8 ?C (98.3 ?F) Resp 18 Wt (!) 141.5 kg (312 lb) SpO2 96% Physical Exam Vitals and nursing note reviewed. Constitutional: General: He is not in acute distress. Appearance: Normal appearance. He is not toxic-appearing. HENT: Right Ear: Tympanic membrane and ear canal normal. Left Ear: Tympanic membrane and ear canal normal. Nose: Nose normal. Mouth/Throat: Mouth: Mucous membranes are moist. Pharynx: No oropharyngeal exudate or posterior oropharyngeal erythema. Eyes: Conjunctiva/sclera: Conjunctivae normal. Cardiovascular: Rate and Rhythm: Normal rate and regular rhythm. Pulmonary: Effort: Pulmonary effort is normal. Breath sounds: Wheezing (mild) present. Skin: General: Skin is warm and dry. Neurological: Mental Status: He is alert. Assessment and Plan ASSESSMENT/PLAN: 1. URI, acute - ICD9: 465.9, ICD10: J06.9 (primary diagnosis) - Discussed viral etiology and rationale for treatment. - Symptomatic treatment with prn analgesia - Supportive care with fluids and rest -Offered COVID/flu test, patient declines. -Note for work given. -Prednisone and albuterol inhaler. 2. Mild intermittent asthma with acute exacerbation - ICD9: 493.92, ICD10: J45.21 -Albuterol refilled. Prednisone x5 days - Avoidance of triggers recommended Diagnosis and treatment plan were discussed and questions were answered to the patient's satisfaction. Pt acknowledged understanding of concepts and follow up plan. Specific signs and symptoms that would indicate the need for higher level of care were discussed in detail warranting prompt ER evaluation. YKUNG Pickett [facility] 02-26-2022 History of Presen t illness Narrative This note was created using Degordianter. Subjective Osmin Chairez is a 21 year old male. HPI 21-year-old male with PMH of asthma presents for cough, congestion x3 days. Patient states that he has been having a runny nose and congestion for the past few days. He also has a dry cough. He states he has history of asthma, but ran out of his inhaler. He does not really feel like he is wheezing. He has no chest pain or shortness of breath. No vomiting or diarrhea. No sick contacts. PAST MEDICAL HISTORY Diagnosis Date Obesity 06/12/2012 PMH - PAST MEDICAL HISTORY OF pyloric stenosis Strabismic amblyopia Unspecified asthma(493.90) PAST SURGICAL HISTORY Procedure Laterality Date KNEE SURGERY HX 07/2015 Dr. Galeana [facility] PAST SURGICAL HISTORY OF 05/13 repair pyloric stenosis PAST SURGICAL HISTORY OF 01/09/09 left eye surgery TYMPANOSTOMY LOCAL/TOPICAL ANESTHESIA 12/10/05 ALLERGIES Patient has no known allergies. MEDICATIONS SYMBICORT 160-4.5 mcg/actuation inhaler Inhale 2 Puffs as instructed twice daily. albuterol HFA (VENTOLIN HFA) 90 mcg/actuation inhaler Inhale 2 Puffs as instructed every 4 hours as needed for wheezing/shortness of breath (Use with aerochamber). ibuprofen (MOTRIN) 400 mg tablet Take 1 tablet by mouth every 6 hours as needed for pain. albuterol HFA (PROVENTIL HFA, VENTOLIN HFA) 90 mcg/actuation inhaler Inhale 2 Puffs as instructed every 4 hours as needed for wheezing/shortness of breath. predniSONE (DELTASONE) 50 mg Take 1 tablet by mouth once daily for 5 days. cetirizine (ZYRTEC) 10 mg tablet Take 1 tablet by mouth once daily. (Patient not taking: Reported on 12/04/2020 ) FAMILY HISTORY Problem Relation Age of Onset other ([place]) Father age 44 Hypertension Paternal Grandmother Diabetes Paternal Grandmother Asthma Paternal Grandfather Seizures Paternal Grandfather aunt other (gallbladder) Paternal Grandfather maternal and paternal side Social History Tobacco Use Smoking status: Former Types: Cigarettes Passive exposure: Yes Smokeless tobacco: Never Tobacco comments: mother, father, and sister smoke inside Vaping Use Vaping Use: Never used Substance Use Topics Alcohol use: Not Currently Drug use: No Review of Systems Constitutional: Negative for chills and fever. HENT: Positive for congestion. Negative for sore throat. Respiratory: Positive for cough. Negative for shortness of breath. Gastrointestinal: Negative for diarrhea and vomiting. Objective BP 128/74 Pulse 100 Temp 36.8 C (98.3 F) Resp 18 Wt (!) 141.5 kg (312 lb) SpO2 96% Physical Exam Vitals and nursing note reviewed. Constitutional: General: He is not in acute distress. Appearance: Normal appearance. He is not toxic-appearing. HENT: Right Ear: Tympanic membrane and ear canal normal. Left Ear: Tympanic membrane and ear canal normal. Nose: Nose normal. Mouth/Throat: Mouth: Mucous membranes are moist. Pharynx: No oropharyngeal exudate or posterior oropharyngeal erythema. Eyes: Conjunctiva/sclera: Conjunctivae normal. Cardiovascular: Rate and Rhythm: Normal rate and regular rhythm. Pulmonary: Effort: Pulmonary effort is normal. Breath sounds: Wheezing (mild) present. Skin: General: Skin is warm and dry. Neurological: Mental Status: He is alert. Assessment and Plan ASSESSMENT/PLAN: 1. URI, acute - ICD9: 465.9, ICD10: J06.9 (primary diagnosis) - Discussed viral etiology and rationale for treatment. - Symptomatic treatment with prn analgesia - Supportive care with fluids and rest -Offered COVID/flu test, patient declines. -Note for work given. -Prednisone and albuterol inhaler. 2. Mild intermittent asthma with acute exacerbation - ICD9: 493.92, ICD10: J45.21 -Albuterol refilled. Prednisone x5 days - Avoidance of triggers recommended Diagnosis and treatment plan were discussed and questions were answered to the patient's satisfaction. Pt acknowledged understanding of concepts and follow up plan. Specific signs and symptoms that would indicate the need for higher level of care were discussed in detail warranting prompt ER evaluation. KYUNG Pickett documented in this encounter [facility] 12-27-2021 Note HNO ID: [id number] Author: Staci Jaquez APRN.ASSISTANT SOFTBALL COACH Service: ? Author Type: Nurse Practitioner Type: Progress Notes Filed: 12/27/2021 6:02 PM Note Text: This note was created using Tandem Transitriter. Subjective Osmin Chairez is a 21 year old male. 21 year old male with PMH asthma, obesity and behavioral problems presents for complaints of illness. Acute onset 2 days ago +sore throat + stuffy nose +right ear pain Denies cough Denies fever or chills. Used Tylenol +ill contacts Denies tobacco usage, stating last usage was 6 years ago +ill contacts The history is provided by the patient. No human resources office manager was used. Ear Pain This is a new problem. The current episode started in the past 7 days. The problem occurs constantly. The problem has been gradually worsening. Associated symptoms include abdominal pain, congestion and a sore throat. Pertinent negatives include no anorexia, arthralgias, change in bowel habit, chest pain, chills, coughing, diaphoresis, fatigue, fever, headaches, joint swelling, myalgias, nausea, neck pain, numbness, rash, swollen glands, urinary symptoms, vertigo, visual change, vomiting or weakness. Nothing aggravates the symptoms. He has tried acetaminophen for the symptoms. The treatment provided mild relief. PAST MEDICAL HISTORY Diagnosis Date Obesity 06/12/2012 PMH - PAST MEDICAL HISTORY OF pyloric stenosis Strabismic amblyopia Unspecified asthma(493.90) PAST SURGICAL HISTORY Procedure Laterality Date KNEE SURGERY HX 07/2015 Dr. Kervin ANTHONY PAST SURGICAL HISTORY OF 05/13 repair pyloric stenosis PAST SURGICAL HISTORY OF 01/09/09 left eye surgery TYMPANOSTOMY LOCAL/TOPICAL ANESTHESIA 12/10/05 ALLERGIES Patient has no known allergies. MEDICATIONS SYMBICORT 160-4.5 mcg/actuation inhaler Inhale 2 Puffs as instructed twice daily. albuterol HFA (VENTOLIN HFA) 90 mcg/actuation inhaler Inhale 2 Puffs as instructed every 4 hours as needed for wheezing/shortness of breath (Use with aerochamber). ibuprofen (MOTRIN) 400 mg tablet Take 1 tablet by mouth every 6 hours as needed for pain. amoxicillin-clavulanic acid (AUGMENTIN) 875-125 mg per tablet Take 1 tablet by mouth twice daily for 7 days. cetirizine (ZYRTEC) 10 mg tablet Take 1 tablet by mouth once daily. (Patient not taking: Reported on 12/04/2020 ) FAMILY HISTORY Problem Relation Age of Onset other ([place]) Father age 44 Hypertension Paternal Grandmother Diabetes Paternal Grandmother Asthma Paternal Grandfather Seizures Paternal Grandfather aunt other (gallbladder) Paternal Grandfather maternal and paternal side Social History Tobacco Use Smoking status: Former Types: Cigarettes Passive exposure: Yes Smokeless tobacco: Never Tobacco comments: mother, father, and sister smoke inside Vaping Use Vaping Use: Never used Substance Use Topics Alcohol use: Not Currently Drug use: No Review of Systems Constitutional: Negative for chills, diaphoresis, fatigue and fever. HENT: Positive for congestion and sore throat. Eyes: Negative for pain, discharge, redness and itching. Respiratory: Negative for apnea, cough, choking and chest tightness. Cardiovascular: Negative for chest pain. Gastrointestinal: Positive for abdominal pain. Negative for anorexia, change in bowel habit, nausea and vomiting. Musculoskeletal: Negative for arthralgias, joint swelling, myalgias and neck pain. Skin: Negative for color change, pallor and rash. Allergic/Immunologic: Negative for environmental allergies, food allergies and immunocompromised state. Neurological: Negative for dizziness, vertigo, facial asymmetry, weakness, numbness and headaches. Hematological: Negative for adenopathy. Does not bruise/bleed easily. Psychiatric/Behavioral: Negative for agitation and behavioral problems. Objective BP 112/52 Pulse 85 Temp 36.2 ?C (97.2 ?F) Resp 21 Wt (!) 140.4 kg (309 lb 9.6 oz) SpO2 98% Physical Exam Vitals and nursing note reviewed. Constitutional: General: He is not in acute distress. Appearance: Normal appearance. He is not ill-appearing, toxic-appearing or diaphoretic. HENT: Head: Normocephalic and atraumatic. Right Ear: External ear normal. Left Ear: External ear normal. Ears: Comments: Right TM erythematous Nose: Nose normal. No congestion or rhinorrhea. Mouth/Throat: Mouth: Mucous membranes are moist. Pharynx: Oropharynx is clear. No oropharyngeal exudate or posterior oropharyngeal erythema. Eyes: General: Right eye: No discharge. Left eye: No discharge. Extraocular Movements: Extraocular movements intact. Conjunctiva/sclera: Conjunctivae normal. Pupils: Pupils are equal, round, and reactive to light. Cardiovascular: Rate and Rhythm: Normal rate and regular rhythm. Pulses: Normal pulses. Heart sounds: Normal heart sounds. No murmur heard. No friction rub. No gallop. Pulmonary: Effort: Pulmonary effort is (more content not included)... [facility] 12-27-2021 History of Presen t illness Narrative This note was created using Jybe. Subjective Osmin Chairez is a 21 year old male. 21 year old male with PMH asthma, obesity and behavioral problems presents for complaints of illness. Acute onset 2 days ago +sore throat + stuffy nose +right ear pain Denies cough Denies fever or chills. Used Tylenol +ill contacts Denies tobacco usage, stating last usage was 6 years ago +ill contacts The history is provided by the patient. No human resources office manager was used. Ear Pain This is a new problem. The current episode started in the past 7 days. The problem occurs constantly. The problem has been gradually worsening. Associated symptoms include abdominal pain, congestion and a sore throat. Pertinent negatives include no anorexia, arthralgias, change in bowel habit, chest pain, chills, coughing, diaphoresis, fatigue, fever, headaches, joint swelling, myalgias, nausea, neck pain, numbness, rash, swollen glands, urinary symptoms, vertigo, visual change, vomiting or weakness. Nothing aggravates the symptoms. He has tried acetaminophen for the symptoms. The treatment provided mild relief. PAST MEDICAL HISTORY Diagnosis Date Obesity 06/12/2012 PMH - PAST MEDICAL HISTORY OF pyloric stenosis Strabismic amblyopia Unspecified asthma(493.90) PAST SURGICAL HISTORY Procedure Laterality Date KNEE SURGERY HX 07/2015 Dr. G[facility] PAST SURGICAL HISTORY OF 05/13 repair pyloric stenosis PAST SURGICAL HISTORY OF 01/09/09 left eye surgery TYMPANOSTOMY LOCAL/TOPICAL ANESTHESIA 12/10/05 ALLERGIES Patient has no known allergies. MEDICATIONS SYMBICORT 160-4.5 mcg/actuation inhaler Inhale 2 Puffs as instructed twice daily. albuterol HFA (VENTOLIN HFA) 90 mcg/actuation inhaler Inhale 2 Puffs as instructed every 4 hours as needed for wheezing/shortness of breath (Use with aerochamber). ibuprofen (MOTRIN) 400 mg tablet Take 1 tablet by mouth every 6 hours as needed for pain. amoxicillin-clavulanic acid (AUGMENTIN) 875-125 mg per tablet Take 1 tablet by mouth twice daily for 7 days. cetirizine (ZYRTEC) 10 mg tablet Take 1 tablet by mouth once daily. (Patient not taking: Reported on 12/04/2020 ) FAMILY HISTORY Problem Relation Age of Onset other ([place]) Father age 44 Hypertension Paternal Grandmother Diabetes Paternal Grandmother Asthma Paternal Grandfather Seizures Paternal Grandfather aunt other (gallbladder) Paternal Grandfather maternal and paternal side Social History Tobacco Use Smoking status: Former Types: Cigarettes Passive exposure: Yes Smokeless tobacco: Never Tobacco comments: mother, father, and sister smoke inside Vaping Use Vaping Use: Never used Substance Use Topics Alcohol use: Not Currently Drug use: No Review of Systems Constitutional: Negative for chills, diaphoresis, fatigue and fever. HENT: Positive for congestion and sore throat. Eyes: Negative for pain, discharge, redness and itching. Respiratory: Negative for apnea, cough, choking and chest tightness. Cardiovascular: Negative for chest pain. Gastrointestinal: Positive for abdominal pain. Negative for anorexia, change in bowel habit, nausea and vomiting. Musculoskeletal: Negative for arthralgias, joint swelling, myalgias and neck pain. Skin: Negative for color change, pallor and rash. Allergic/Immunologic: Negative for environmental allergies, food allergies and immunocompromised state. Neurological: Negative for dizziness, vertigo, facial asymmetry, weakness, numbness and headaches. Hematological: Negative for adenopathy. Does not bruise/bleed easily. Psychiatric/Behavioral: Negative for agitation and behavioral problems. Objective BP 112/52 Pulse 85 Temp 36.2 C (97.2 F) Resp 21 Wt (!) 140.4 kg (309 lb 9.6 oz) SpO2 98% Physical Exam Vitals and nursing note reviewed. Constitutional: General: He is not in acute distress. Appearance: Normal appearance. He is not ill-appearing, toxic-appearing or diaphoretic. HENT: Head: Normocephalic and atraumatic. Right Ear: External ear normal. Left Ear: External ear normal. Ears: Comments: Right TM erythematous Nose: Nose normal. No congestion or rhinorrhea. Mouth/Throat: Mouth: Mucous membranes are moist. Pharynx: Oropharynx is clear. No oropharyngeal exudate or posterior oropharyngeal erythema. Eyes: General: Right eye: No discharge. Left eye: No discharge. Extraocular Movements: Extraocular movements intact. Conjunctiva/sclera: Conjunctivae normal. Pupils: Pupils are equal, round, and reactive to light. Cardiovascular: Rate and Rhythm: Normal rate and regular rhythm. Pulses: Normal pulses. Heart sounds: Normal heart sounds. No murmur heard. No friction rub. No gallop. Pulmonary: Effort: Pulmonary effort is normal. No respiratory distress. Breath sounds: Normal breath sounds. No stridor. No wheezing, rhonchi or rales. Chest: Chest wall: No tenderness. Abdominal: General: Abdomen is flat. There is no distension. Palpations: Abdomen is soft. There is no mass. Tenderness: There is no abdominal tenderness. There is no guarding or rebound. Hernia: No hernia is present. Musculoskeletal: General: No swelling, tenderness, deformity or signs of injury. Normal range of motion. Cervical back: Normal range of motion and neck supple. No rigidity or tenderness. Right lower leg: No edema. Left lower leg: No edema. Lymphadenopathy: Cervical: No cervical adenopathy. Skin: General: Skin is warm and dry. Capillary Refill: Capillary refill takes less than 2 seconds. Coloration: Skin is not jaundiced or pale. Findings: No bruising, lesion or rash. Neurological: General: No focal deficit present. Mental Status: He is alert and oriented to person, place, and time. Cranial Nerves: No cranial nerve deficit. Sensory: No sensory deficit. Motor: No weakness. Coordination: Coordination normal. Gait: Gait normal. Deep Tendon Reflexes: Reflexes normal. Psychiatric: Mood and Affect: Mood normal. Behavior: Behavior normal. Thought Content: Thought content normal. Assessment and Plan ASSESSMENT/PLAN: 1. Acute otitis media, right - ICD9: 382.9, ICD10: H66.91 (primary diagnosis) - Will begin treatment with as per antibiotic as written, see orders - The patient should also be given OTC cough and cold meds as needed, warm salt water gargles, throat lozenges and/or OTC throat spray as needed, and nasal saline gtts and suction prn for the first 5-7 days of treatment. - Supportive care with plenty of fluids, rest, and analgesia prn. - Follow up in 3-5 days if symptoms persist or worsen. 2. URI, acute - ICD9: 465.9, ICD10: J06.9 - Discussed viral etiology and rationale for treatment. - Symptomatic treatment with prn analgesia - Supportive care with fluids and rest Staci Jaquez APRN.SYLVAIN documented in this encounter [facility] 11-28-2021 Miscellaneous Notes Left detailed message on a secured voicemail. Marci Hernandez Left message for patient to return call. Marci Hernandez Left message for patient to return call. Marci Hernandez ----- Message from Mariely Morgan APRN.ASSISTANT SOFTBALL COACH sent at 11/26/2021 8:54 AM EDT ----- Please advise patient of negative COVID and flu test. (Result not viewed in MyChart). documented in this encounter [facility] 11-01-2021 History of Presen t illness Narrative Patient presents with: Sore Throat: ST and congestion x 1 week HPI: Feeling sick for about 1 week. Positive symptoms: sore throat, Cough, resolved Diarrhea, Negative symptoms: Nasal Congestion, Rhinorrhea, Fever, Vomiting, Shortness of breath, Wheezing, OTC: drinking fluids for dry throat Quit smoking 1 year ago. 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 He has been out of inhalers for a couple months. MEDICATIONS: Current Outpatient Medications Medication Sig ibuprofen (MOTRIN) 400 mg tablet Take 1 tablet by mouth every 6 hours as needed for pain. SYMBICORT 160-4.5 mcg/actuation inhaler Inhale 2 Puffs as instructed twice daily. albuterol HFA (VENTOLIN HFA) 90 mcg/actuation inhaler Inhale 2 Puffs as instructed every 4 hours as needed for wheezing/shortness of breath (Use with aerochamber). cetirizine (ZYRTEC) 10 mg tablet Take 1 tablet by mouth once daily. (Patient not taking: Reported on 12/04/2020 ) No current facility-administered medications for this visit. ALLERGIES: ALLERGIES No Known Allergies VITALS: BP 122/80 Pulse 84 Temp 36.4 C (97.6 F) (Tympanic) Resp 16 Wt 135.8 kg (299 lb 6.4 oz) SpO2 98% PHYSICAL EXAM: GEN: Pleasant, in no acute distress. HEENT: PERRL, left eye exotropia, conjunctiva clear Ears: canals occluded by cerumen Sinuses: non-tender frontal sinus, non-tender maxillary sinuses Throat: moist mucous membranes, mild erythema, no exudate Neck: supple, no thyromegaly, no lymphadenopathy HEART: regular rate and rhythm, no murmurs LUNGS: clear to auscultation, no wheezes or crackles, no increased WOB ASSESSMENT/PLAN: 1. URI, acute - ICD9: 465.9, ICD10: J06.9 (primary diagnosis) - 2019 CORONAVIRUS 2. Mild intermittent asthma with acute exacerbation - ICD9: 493.92, ICD10: J45.21 Refill- ALBUTEROL SULFATE HFA 90 MCG/ACTUATION AEROSOL INHALER Follow up with primary care. Bill Monroy MD documented in this encounter [facility] documented as of this encounter (statuses as of 11/01/2021) [facility] History of Past illness Narrative* Problem Noted Date Resolved Date Asthma 06/12/2012 06/16/2017 documented as of this encounter (statuses as of 11/28/2021) [facility] History of Past illness Narrative* Problem Noted Date Resolved Date Asthma 06/12/2012 06/16/2017 documented as of this encounter (statuses as of 12/27/2021) [facility] History of Past illness Narrative* Problem Noted Date Resolved Date Asthma 06/12/2012 06/16/2017 documented as of this encounter (statuses as of 02/26/2022) [facility] History of Past illness Narrative* Problem Noted Date Resolved Date Asthma 06/12/2012 06/16/2017 documented as of this encounter (statuses as of 03/06/2022) [facility] History of Past illness Narrative* Problem Noted Date Diagnosed Date Resolved Date Asthma 06/12/2012 06/16/2017 documented as of this encounter (statuses as of 09/04/2022) [facility] History of Past illness Narrative* Problem Noted Date Diagnosed Date Resolved Date Asthma 06/12/2012 06/16/2017 documented as of this encounter (statuses as of 11/16/2022) [facility] History of Past illness Narrative* Problem Noted Date Diagnosed Date Resolved Date Asthma 06/12/2012 06/16/2017 documented as of this encounter (statuses as of 12/10/2022) [facility] History of Past illness Narrative* Problem Noted Date Diagnosed Date Resolved Date Asthma 06/12/2012 06/16/2017 documented as of this encounter (statuses as of 01/10/2023) [facility] note No data available for this section [facility] Evaluation note* Diagnosis Mild intermittent asthma with exacerbation- Primary Unspecified asthma, with exacerbation documented in this encounter [facility] Work Phone: Evaluation note* Diagnosis URI, acute- Primary Acute upper respiratory infections of unspecified site Mild intermittent asthma with acute exacerbation Unspecified asthma, with exacerbation documented in this encounter [facility] note* Diagnosis Acute otitis media, right- Primary Unspecified otitis media URI, acute Acute upper respiratory infections of unspecified site documented in this encounter [facility] note* Diagnosis URI, acute- Primary Acute upper respiratory infections of unspecified site Mild intermittent asthma with acute exacerbation Unspecified asthma, with exacerbation documented in this encounter [facility] note* Diagnosis Osteochondral defect of talus- Primary Acquired musculoskeletal deformity of other specified site Pes planus of both feet documented in this encounter [facility] note* Diagnosis Acute cough- Primary History of asthma Personal history of other diseases of respiratory system Leg numbness Disturbance of skin sensation documented in this encounter [facility] note* Diagnosis Acute pain of both shoulders- Primary Viral URI with cough Acute upper respiratory infections of unspecified site documented in this encounter [facility] note* Diagnosis Gastroenteritis- Primary Other and unspecified noninfectious gastroenteritis and colitis documented in this encounter [facility] Discharge instructions* Instructions* Rudy Stoner MD - 07/26/2021 Use medications as prescribed. Return to Emergency Room immediately if breathing worsens in any wayor any new or worsening symptoms. * Attachments The following attachments cannot be sent through Care Everywhere. * Asthma: General Info (Ecuadorean) * Asthma Triggers: General Info (Ecuadorean) [facility]: Summary Purpose Family History No Family History Records FoundNo Family History Records Found No data available for this section No Family History Records FoundNo Family History Records FoundNo Family History Records Found Advance Directives No Advanced Directives Records FoundNo Advanced Directives Records FoundNo Advanced Directives Records FoundNo Advanced Directives Records FoundNo Advanced Directives Records Found Reason for Referral Specialty Diagnoses / Procedures Referred By Contac t Referred To Contact Family Medicine Diagnoses Mild intermittent asthma with exacerbation Rudy Stoner MD [address] [place] [address] [facility] [address] [place] [address] Referral ID Status Reason Start Date Expiration Date V isits Requested Visits Authorized [id number] Open Specialty Services Required 07/26/2021 07/26/2022 1 1 Scheduling Instructions [address] [place] [address] Specialty Diagnoses / Procedures Referred By Contac t Referred To Contact Diagnoses Mild intermittent asthma with acute exacerbation Bill Monroy MD [address] [place] [address] Referral ID Status Reason Start Date Expiration Date Visits Re quested Visits Authorized [id number] Closed 1 1 Health Concerns Infection Onset Date Last Indicated Resolved Time COVID-19 Rule-Out 11/01/2021 11/01/2021 Additional Source Comments (unrecognized sect ion and content) No Status Records FoundNo Status Records FoundNo Status Records FoundNo Status Records FoundNo Status Records Found INFORMATION SOURCE (unrecogn ized section and content) DATE CREATED AUTHOR AUTHOR'S ORGANIZ ATION 11/19/2018 [facility] DATE CREATED AUTHOR AUTHOR'S ORGANIZ ATION 09/09/2022 [facility] ([place]) DATE CREATED AUTHOR AUTHOR'S ORGANIZ ATION 12/10/2022 [facility] DATE CREATED AUTHOR AUTHOR'S ORGANIZ ATION [facility]14[facility] Reason for Visit (unrecogniz ed section and content) Reason Comments Sore Throat ST and congestion x 1 week Reason Comments Results, Lab Reason Comments Ear Pain Right ear pain, stuf fy nose, scratchy throat x 2 days Reason Comments Chest Congestion cough x 3 days Reason Comments New Follow Up Pain Reason Comments Cough X 3 weeks Reason Comments Cough Runny nose x 2 days; upper back pain x 2 weeks Reason Comments Cough Vomiting, possible f ood poisoning x 4 days Ordered Prescriptions (unrec ognized section and content) Scheduled Active and Recently Administ ered Medications (unrecognized section and content) Source Comments (unrecognize d section and content) In the event this informatio n is protected by the Federal Confidentiality of Alcohol and Drug Abuse Patient Records regulations: The Federal rules restrict any use of the information to criminally investigate or prosecute any alcohol or drug abuse patient.[facility] the event this information is protected by the Federal Confidentiality of Alcohol and Drug Abuse Patient Records regulations: The Federal rules restrict any use of the information to criminally investigate or prosecute any alcohol or drug abuse patient.[facility] Center[facility] the event this information is protected by the Federal Confidentiality of Alcohol and Drug Abuse Patient Records regulations: The Federal rules restrict any use of the information to criminally investigate or prosecute any alcohol or drug abuse patient.[facility] Center[facility] the event this information is protected by the Federal Confidentiality of Alcohol and Drug Abuse Patient Records regulations: The Federal rules restrict any use of the information to criminally investigate or prosecute any alcohol or drug abuse patient.[facility] Center[facility] the event this information is protected by the Federal Confidentiality of Alcohol and Drug Abuse Patient Records regulations: The Federal rules restrict any use of the information to criminally investigate or prosecute any alcohol or drug abuse patient.[facility] Center[facility] the event this information is protected by the Federal Confidentiality of Alcohol and Drug Abuse Patient Records regulations: The Federal rules restrict any use of the information to criminally investigate or prosecute any alcohol or drug abuse patient.[facility] CenterIn the event this information is protected by the Federal Confidentiality of Alcohol and Drug Abuse Patient Records regulations: The Federal rules restrict any use of the information to criminally investigate or prosecute any alcohol or drug abuse patient.[facility] CenterIn the event this information is protected by the Federal Confidentiality of Alcohol and Drug Abuse Patient Records regulations: The Federal rules restrict any use of the information to criminally investigate or prosecute any alcohol or drug abuse patient.[facility] CenterIn the event this information is protected by the Federal Confidentiality of Alcohol and Drug Abuse Patient Records regulations: The Federal rules restrict any use of the information to criminally investigate or prosecute any alcohol or drug abuse patient.[facility] Care Teams (unrecognized sec tion and content) Deputy Director Relationship Specialty Start Date End Date Rosalie Garnica MD [address] [place] [address] PCP - General Family Medicine 01/18/21 Deputy Director Relationship Specialty Start Date End Date Rosalie Garnica MD [address] [place] [address] PCP - General Family Medicine 01/18/21 Deputy Director Relationship Specialty Start Date End Date Rosalie Garnica MD [address] [place] [address] PCP - General Family Medicine 01/18/21 Deputy Director Relationship Specialty Start Date End Date Rosalie Garnica MD [address] [place] [address] PCP - General Family Medicine 01/18/21 Deputy Director Relationship Specialty Start Date End Date Rosalie Garnica MD [address] [place] [address] PCP - General Family Medicine 09/13/22 Deputy Director Relationship Specialty Start Date End Date Rosalie Garnica MD [address] [place] [address] PCP - General Family Medicine 09/13/22 Deputy Director Relationship Specialty Start Date End Date Rosalie Garnica MD [address] [place], [place] [id number] PCP - General Family Medicine 09/13/22 FOR RECORDS PERTAINING TO PATIENTS WHO ARE OR HAVE BEEN ENROLLED IN A CHEMICAL DEPENDENCY/SUBSTANCEABUSE PROGRAM, SOME INFORMATION MAY BE OMITTED. This clinical summary was aggregated from multiple sources. Caution should be exercised in using it in the provision of clinical care. This summary normalizes information from multiple sources, and as a consequence, information in this document may materially change the coding, format and clinical context of patient data. In addition, data may be omitted in some cases. CLINICAL DECISIONS SHOULD BE BASED ON THE PRIMARY CLINICAL RECORDS. [employer] provides no warranty or guarantee of the accuracy or completeness of information in this document.
== END 2023-02-06 12:12 | disposition home or self-care (01) ==
PROVIDERS: Emergency Provider Emergency Medicine; PCP Family Medicine; Visit Provider Emergency Medicine
DX: R42 Dizziness and giddiness (principal); B97.4 Respiratory syncytial virus as the cause of diseases classified elsewhere; F17.210 Nicotine dependence, cigarettes, uncomplicated; E66.9 Obesity, unspecified; R05.9 Cough, unspecified
CPT/HCPCS: 80048; 85025; 87631; 99282

== ENCOUNTER 2023-12-09 21:58 | Emergency (ER) | payer MEDICAID, SELFPAY ==
[2023-12-09 21:59] VITALS: BP 152/100; PULSE 65; RESP 25; TEMP 36.6; O2SAT 98
[2023-12-09 22:02] VITALS: BMI 46.0
[2023-12-09 22:38] VITALS: BP 152/127; PULSE 123; RESP 19; O2SAT 97
--- NOTE | 2023-12-09 23:17 | EKG12_ITS ---
Test Reason : DYSRHYTHMIA Blood Pressure : */* mmHG Vent. Rate : 106 BPM Atrial Rate : 106 BPM P-R Int : 124 ms QRS Dur : 102 ms QT Int : 342 ms P-R-T Axes : 47 80 60 degrees QTcB Int : 454 ms Sinus tachycardia Otherwise normal ECG Confirmed by MESERET TONY, MARIVEL ([id number]), editor house organ SACHI ELY ([id number]) on 12/11/2023 11:31:41 AM Referred By: Confirmed By: MARIVEL CARL MD
--- NOTE | 2023-12-09 23:17 | RAD_ITS ---
STUDY: X-RAY CHEST REASON FOR EXAM: Male, 23 years old patient with cough and shortness of breath. TECHNIQUE: Single AP portable view of the chest. COMPARISON: February 21, 2019. FINDINGS: Cardiac monitoring leads are present. The lungs are clear and expanded. There is no demonstrated pleural abnormality. Normal size heart. Normal mediastinum and keagan. Normal visualized pulmonary arteries. Normal visualized aortic arch and descending thoracic aorta. Normal visualized thoracic spine. Normal visualized ribs, clavicles, and shoulders. There is no demonstrated abnormality of the visualized soft tissue structures of the upper abdomen. RAD/Chest 1 View (Portable) IMPRESSION: No radiographic evidence of acute cardiopulmonary disease. Electronically Signed: Marlene Arnett MD at 1:19 EDT ,
--- NOTE | 2023-12-09 23:20 | EDS_ITS ---
HPI History of Present Illness Chief Complaint: General Illness Informant: patient, family and EMS Narrative Narrative: Very limited history from this patient who states he developed cough and shortness of breath today but off-and-on since yesterday he has been agitated and fidgety and sweating and throwing himself around without injury, worse tonight. History is extremely limited because the patient keeps making comments instead of answering questions. Family states he started BuSpar around a week ago and that is his only new medication. The patient also states that he smokes marijuana 2 or so days ago, but he did not become extremely agitated right after doing that. He denies using any other drugs knowingly. Family later states that they found out that what ever he smoked was laced with something but they do not know what it was. [facility] Medical History Asthma Depression Anxiety Bipolar 1 disorder Home Medications ?Medication ?Instructions ?Recorded ?Last Taken ?Type albuterol 90 mcg/actuation aerosol 3 mcg inhalation Q4H PRN PRN sob 04/06/21 Unknown History inhaler buspirone 5 mg tablet 5 mg PO TID 12/09/23 Unknown History hydroxyzine pamoate 25 mg capsule 25 mg PO TID PRN PRN HTN 12/09/23 Unknown History melatonin 1 mg tablet 1 mg PO QHS PRN PRN insomnia 12/09/23 Unknown History paroxetine HCl 30 mg tablet 30 mg PO DAILY 12/09/23 Unknown History Allergy/AdvReac Type Severity Reaction Status Date / Time No Known Allergies Allergy Verified 12/09/23 21:59 Surgical History (Updated 12/09/23 @ 22:43 by Daphne Wilks) H/O left knee surgery Social History Smoking Status: Light Smoker (<10/day) ROS ROS ED Constitutional Constitutional ED: Reports fever(s), subjective and sweats Eyes Eyes: Denies change in vision or diplopia ENT ENT ED: Denies rhinorrhea or sore throat Cardiovascular Cardiovascular: Denies chest pain Respiratory/Chest Respiratory/Chest: Reports cough, dyspnea and sputum Gastrointestinal Gastrointestinal: Denies abdominal pain, diarrhea, nausea or vomiting Genitourinary Genitourinary ED: Denies dysuria or hematuria Musculoskeletal Musculoskeletal: Denies back pain or neck pain Integumentary Denies abscess or rash Neurologic Neurologic: Denies headache(s), paresthesias or weakness Psychiatric Psychiatric: Reports anxiety; Denies suicidal thoughts EXAM Physical Exam Const Vital Signs: 12/09/23 21:59 12/09/23 22:38 12/09/23 22:39 Temperature 97.9 F Temperature Source Temporal Pulse Rate 65 123 H Respiratory Rate 25 H 19 H Respiratory Effort Respiratory Depth Respiratory Pattern Tachypnea Blood Pressure 152/100 H 152/127 H Blood Pressure Mean 117 135 Pulse Ox 98 97 Oxygen Delivery Method Room Air Room Air 12/09/23 23:00 12/09/23 23:17 12/09/23 23:39 Temperature Temperature Source Pulse Rate 117 H Respiratory Rate 16 Respiratory Effort Short of Breath Respiratory Depth Shallow Respiratory Pattern Tachypnea Blood Pressure Blood Pressure Mean Pulse Ox Oxygen Delivery Method Room Air Room Air 12/09/23 23:45 12/10/23 00:00 Temperature Temperature Source Pulse Rate 108 H 113 H Respiratory Rate 41 H 34 H Respiratory Effort Respiratory Depth Respiratory Pattern Blood Pressure 170/82 H Blood Pressure Mean 102 Pulse Ox 95 95 Oxygen Delivery Method Room Air Positive well nourished and well developed Constitutional Narrative: flailing arms and legs around, agitated; able to follow commands and move ext's w/ intention as well. General Appearance ED: well developed HEENT Reports moist mucous membranes HEENT Narrative: hoarseness, limiting ability to understand his answers to questions normocephalic and atraumatic Eyes PERRL and EOMs intact bilaterally Eyes Narrative: pupils 3-4 mm Neck full ROM, no lymphadenopathy and supple Resp normal respiratory effort and clear to auscultation bilaterally Resp Narrative: tachypeic; limited exam due to will not stop talking; grossly clear. Cardio regular rate and regular rhythm Rate: tachycardic GI non-tender and non-distended Auscultation: normoactive bowel sounds Palpation: soft Back/Spine no CVA tenderness General Back: other FROM Extremity normal to inspection General Extremety ED: Negative for edema, pulses abnormal or tenderness General Extremity: Negative for edema or pulses abnormal Neuro oriented x3, CN's II-XII intact bilaterally and no sensory deficits noted Neuro Narrative: Not able to discern reflexes because patient will not stop flailing extremities and flexing them Sensorium / Orientation: awake and alert Motor Exam: strength 5/5 throughout Psych Attitude: agitated Mood & Affect: anxious Skin no rashes or lesions noted and no wounds Skin Narrative: diaphoretic MDM MDM MDM Narrative Medical decision making narrative: Differential here includes pulmonary infection versus simple URI versus COVID/influenza/RSV, simple anxiety, psychosomatic agitation, also the possibility that this could be a reaction related to his psychiatric medications. Therefore while working him up metabolically and obtaining EKG, chest x-ray, he was given Ativan to help him calm down. In the meantime his lactate is elevated, he has a leukocytosis that is mild, his EKG is normal, and 1 view chest x-ray on my interpretation shows no acute infiltrates or pulm edema. The Ativan did help some, but it wore off and he was again extremely agitated not able to sit still, his urine is little dark some sending a CPK. I did have respiratory attempt an ABG, and ended up being a venous specimen but with a pH of 7.43 which is reassuring. Covid/flu/RSV negative. Patient's drug screen returned showing amphetamines in addition to cannabinoids. 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 I would not expect buspirone to give him serotonin syndrome or NMS. Patient is very agitated, he is asking for ice water. I gave him some ice water he is able to sit up and hold the ice water and drink it without spilling it, overriding the extreme fidgeting and agitation of his extremities and head. He does take hydroxyzine, he denies taking an overdose of any of his medications, and an anticholinergic toxidrome would be much more likely to make the patient dry as opposed to diaphoretic, he is the latter. At this time I am going to give him a liter of fluid, and some more Ativan to try to see if that helps him settle down, with the intent of observing him and possibly/hopefully discharging him when his condition is improved. CPK returned 236, ruling out acute rhabdomyolysis. Lab Data Attestation: I reviewed the patient's lab results. Labs: Laboratory Results - last 24 hr 12/09/23 12/10/23 23:33 00:57 WBC 13.6 H RBC 5.53 Hgb 16.1 Hct 46.6 MCV 84.3 MCH 29.1 MCHC 34.5 RDW Std Deviation 37.4 RDW Coeff of Tylor 12.4 Plt Count 300 MPV 11.3 Immature Gran % (Auto) 0.500 Neut % (Auto) 69.8 Lymph % (Auto) 18.6 L Appling % (Auto) 10.4 H Eos % (Auto) 0.3 Baso % (Auto) 0.4 Absolute Neuts (auto) 9.5 H Absolute Lymphs (auto) 2.53 Nucleated RBC % 0 Sodium 144 Potassium 4.2 Chloride 108 H Carbon Dioxide 28.0 Anion Gap 8 BUN 18 Creatinine 1.08 Estim Creat Clear Calc 133.29 Est GFR (MDRD) Af Amer 110 Est GFR (MDRD) Non-Af 91 BUN/Creatinine Ratio 16.7 Glucose 97 Lactic Acid 2.4 H* Calcium 9.8 Total Bilirubin 1.40 H AST 22 ALT 25 Alkaline Phosphatase 92 Total Creatine Kinase 236 Troponin I High Sens 5 B-Natriuretic Peptide < 2.0 Total Protein 8.2 Albumin 4.2 Globulin 4.0 Albumin/Globulin Ratio 1.0 Urine Opiates Screen NEGATIVE Urine Methadone Screen NEGATIVE Ur Barbiturates Screen NEGATIVE Ur Phencyclidine Scrn NEGATIVE Ur Amphetamines Screen POSITIVE H MDMA (Ecstasy) Screen NEGATIVE U Benzodiazepines Scrn NEGATIVE Urine Cocaine Screen NEGATIVE U Cannabinoids Screen POSITIVE H Ur Drug Screen Comment Ethyl Alcohol < 3.0 ABG Data ABG results: ABG 12/10/23 00:05 Specimen Type JOE Sample Site Not entered VBG pH 7.43 H VBG pO2 20 L VBG HCO3 29 H VBG Total CO2 30 VBG O2 Sat (Calc) 33 L VBG Base Excess 4 H POC Mix VBG pCO2 Pt Tmp 43.2 O2 Delivery Device Room Air Crit Call To/Read Back Yes Blood Gas Notified Whom Vaibhav Blood Gas Notified Time 00:06:40 Radiography Diagnostic Testing: Clinical Impression(s) from Imaging Studies Chest X-Ray 12/09/23 23:17 IMPRESSION: No radiographic evidence of acute cardiopulmonary disease. Electronically Signed: Marlene Arnett MD at 1:19 EDT , Rhythm Strip Rhythm Strip: Sinus Tach Rate: 120 Ectopy: None EKG Initial EKG: Attestation: I personally reviewed and interpreted this EKG as follows: Interpretation: Sinus Tachycardia (106) Comments: Nml axis & intervals; otherwise nml EKG Discharge Plan Triage Chief Complaint: General Illness ED Provider: Steven Esposito Dx/Rx/DC Orders Clinical Impression: Accidental poisoning by adrenergics, Psychomotor agitation, Viral URI with cough Instructions: Understanding Synthetic Marijuana, Meth Abuse Addiction Prescriptions: No Action albuterol 90 mcg/actuation Aerosol 3 mcg INHALATION Q4H PRN PRN (Reason: sob) buspirone 5 mg tablet 5 mg PO TID hydroxyzine pamoate 25 mg capsule 25 mg PO TID PRN PRN (Reason: HTN) paroxetine HCl 30 mg tablet 30 mg PO DAILY melatonin 1 mg tablet 1 mg PO QHS PRN PRN (Reason: insomnia) Primary Care Provider: Maurisio Ramirez Referrals: Maurisio Ramirez MD [Primary Care Provider] - 1-2 Days if not improving Print Language: Congolese
[2023-12-09] MEDS: LORazepam 2 MG/ML Syringe 1 MG IV (23:34)
[2023-12-09 23:39] VITALS: PULSE 117; RESP 16
[2023-12-09 23:44] LABS: Absolute Lymphocyte Count 2.53 X10^3/uL (0.83-4.51); Absolute Neutrophil Count 9.5 X10^3/uL (2.0-7.7); Basophil# 0.05 X10^3/uL; Basophil% 0.4 % (0-1); Eosinophil# 0.04 X10^3/uL; Eosinophils% 0.3 % (0-5); Hematocrit 46.6 % (40-54); Hemoglobin 16.1 g/dL (13.0-16.5); Lymphocyte # 2.53 X10^3/ul (0.83-4.51); Lymphocyte % 18.6 % (19-41); Mean Corp Hgb Conc 34.5 g/dL (32-36); Mean Corpuscular Hgb 29.1 pg (27.0-32.0); Mean Corpuscular Volume 84.3 fL (80-94); Mean Platelet Vol. 11.3 fl (6.2-12.0); Monocyte# 1.41 X10^3/uL; Monocyte% 10.4 % (0-10); NRBC Flagged by Analyzer 0 % (0-5); Neutrophil # 9.48 X10^3/uL (2.7-7.7); Neutrophil % 69.8 % (47-70); Platelet Count 300 K/mm3 (150-450); RBC Distribution Width CV 12.4 % (11.6-14.6); RBC Distribution Width SD 37.4 fl (35.1-43.9); Red Blood Count 5.53 M/mm3 (4.6-6.2); White Blood Count 13.6 K/mm3 (4.4-11.0)
[2023-12-09 23:45] VITALS: PULSE 108; RESP 41; O2SAT 95
[2023-12-09 23:57] LABS: Alcohol, Blood (Medical)-Serum < 3.0 mg/dL
[2023-12-10] VITALS (13 sets, daily range): BP systolic 140–170; BP diastolic 55–87; PULSE 111–136; RESP 17–35; O2SAT 75–96
[2023-12-10 00:03] LABS: AST(SGOT) 22 U/L (15-37); Alanine Aminotransfer ALT/SGPT 25 U/L (16-61); Albumin, Serum 4.2 g/dL (3.2-5.0); Alkaline Phosphatase 92 U/L (45-117); Anion Gap 8 (5-15); BUN 18 mg/dL (7-18); BUN/Creat Ratio 16.7 RATIO (10-20); Calcium,Total 9.8 mg/dL (8.5-10.1); Chloride 108 mmol/L (98-107); Creatinine, Serum 1.08 mg/dL (0.70-1.30); EST Glomerular Filtration Rate 91 mL/min (>60); Est Glom Filt Rate - Afr Amer 110 mL/min (>60); Estimated Creatinine Clearance 133.29 ml/min; Glucose 97 mg/dL (74-106); Potassium 4.2 mmol/L (3.5-5.1); Protein, Total 8.2 g/dL (6.4-8.2); Sodium Level 144 mmol/L (136-145); Troponin-I HS 5 pg/mL (3.0-78.0)
[2023-12-10 00:04] LABS: Lactic Acid 2.4 mmol/L (0.4-1.9)
[2023-12-10 00:18] LABS: Blood Gas Specimen Type VEN; O2 Delivery Device Room Air; SITE Not entered; VBG BASE EXCESS 4 mmol/L (-1.0-3.5); VBG Bicarbonate 29 mmol/L (22-26); VBG PO2 20 mmHg (25-40); VBG SO2 33 % (50-70); VBG TCO2 30 mmol/L (23-33); VBG pCO2 43.2 mmHg (41-51); VBG pH 7.43 (7.32-7.42)
[2023-12-10] MEDS: LORazepam 2 MG/ML Syringe 1 MG IV ×2 (01:25→01:42)
[2023-12-10 01:26] LABS: Amphetamine Urine VISTA POSITIVE (<1000 ng/mL); Barbiturate Urine VISTA NEGATIVE (< 200 ng/mL); Benzodiazepine Urine VISTA NEGATIVE (< 200 ng/mL); Cocaine Urine VISTA NEGATIVE (< 300 ng/mL); Ecstacy Urine VISTA NEGATIVE (< 500 ng/mL); Methadone Urine VISTA NEGATIVE (< 300 ng/mL); PCP Urine VISTA NEGATIVE (< 25 ng/mL); THC Urine VISTA POSITIVE (< 50 ng/mL); Vista UDS pH Range 6
[2023-12-10 01:26] LABS: BNP,B-Type NATRIURETIC PEPTIDE < 2.0 pg/mL (0-100)
[2023-12-10] MEDS: 0.9% Normal Saline (1000mL) 1,000 ML 999 ML IV (01:42)
[2023-12-10 01:48] LABS: CPK Total, Creatine Kinase 236 U/L (39-308)
[2023-12-10] MEDS: Haloperidol Lactate 5 MG/ML Vial IV (03:02)
[2023-12-10] MEDS: DiphenhydrAMINE 50 MG/ML Syringe IV (03:03)
[2023-12-10 03:39] LABS: Reflex Lactate? Y
== END 2023-12-10 05:48 | disposition home or self-care (01) ==
LOC: ED 23:27
PROVIDERS: Emergency Provider Emergency Medicine; PCP Family Medicine; Visit Provider Emergency Medicine
DX: T43.621A Poisoning by amphetamines, accidental (unintentional), initial encounter (principal); F31.9 Bipolar disorder, unspecified; J06.9 Acute upper respiratory infection, unspecified; J45.909 Unspecified asthma, uncomplicated; R45.1 Restlessness and agitation; F41.9 Anxiety disorder, unspecified; F17.200 Nicotine dependence, unspecified, uncomplicated; Z79.899 Other long term (current) drug therapy
CPT/HCPCS: 71045; 80053; 80307; 82077; 82550; 82803; 83605; 83880; 84484; 85025; 87631; 93005; 96361; 96374; 96375; 96376; 99285; J7030; A4216

== ENCOUNTER 2024-06-14 11:47 | Emergency (ER) | payer MEDICAID, SELFPAY ==
[2024-06-14 11:50] VITALS: BP 147/129; PULSE 104; RESP 25; TEMP 36.7; O2SAT 97; BMI 46.7
--- NOTE | 2024-06-14 11:59 | EKG12_ITS ---
Test Reason : Blood Pressure : */* mmHG Vent. Rate : 90 BPM Atrial Rate : 90 BPM P-R Int : 132 ms QRS Dur : 102 ms QT Int : 370 ms P-R-T Axes : 75 70 67 degrees QTcB Int : 452 ms Normal sinus rhythm Normal ECG Baseline artifact may adversly affect reading Confirmed by Ray Franco ([id number]), photography editor WILIAN NASH ([id number]) on 06/18/2024 1:16:05 PM Referred By: UG/CG Confirmed By: Ray Franco
[2024-06-14 12:01] VITALS: BP 121/96; PULSE 105; RESP 26; O2SAT 97
--- NOTE | 2024-06-14 12:11 | ED.RN ---
Pt would like to talk to neonatal social worker about outpt counseling. Dr Alonso is aware. Pt denied SI several times.
[2024-06-14] MEDS: Lorazepam 2 MG/ML WCH Syringe 1 MG IV (12:21)
[2024-06-14 13:03] LABS: Absolute Lymphocyte Count 1.55 X10^3/uL (0.83-4.51); Absolute Neutrophil Count 9.1 X10^3/uL (2.0-7.7); Basophil# 0.09 X10^3/uL; Basophil% 0.7 % (0-1); Eosinophil# 0.24 X10^3/uL; Eosinophils% 1.9 % (0-5); Hematocrit 43.3 % (40-54); Hemoglobin 15.1 g/dL (13.0-16.5); Lymphocyte # 1.55 X10^3/ul (0.83-4.51); Lymphocyte % 12.4 % (19-41); Mean Corp Hgb Conc 34.9 g/dL (32-36); Mean Corpuscular Hgb 29.7 pg (27.0-32.0); Mean Corpuscular Volume 85.2 fL (80-94); Mean Platelet Vol. 11.8 fl (6.2-12.0); Monocyte# 1.47 X10^3/uL; Monocyte% 11.7 % (0-10); NRBC Flagged by Analyzer 0 % (0-5); Neutrophil # 9.12 X10^3/uL (2.7-7.7); Neutrophil % 72.8 % (47-70); Platelet Count 253 K/mm3 (150-450); RBC Distribution Width CV 13.2 % (11.6-14.6); RBC Distribution Width SD 40.9 fl (35.1-43.9); Red Blood Count 5.08 M/mm3 (4.6-6.2); White Blood Count 12.5 K/mm3 (4.4-11.0)
[2024-06-14 13:10] LABS: ALB/GLOB Ratio 1.3 RATIO (0.9-2.4); AST(SGOT) 30 U/L (<=37); Alanine Aminotransfer ALT/SGPT 23 U/L (<=46); Albumin, Serum 4.1 g/dL (3.5-5.0); Alkaline Phosphatase 75 U/L (40-129); Anion Gap 13 (5-15); BUN 16 mg/dL (4-19); BUN/Creat Ratio 17.7 RATIO (10-20); Calcium,Total 9.5 mg/dL (7.6-11.0); Carbon Dioxide 22.9 mmol/L (21.0-32.0); Chloride 102 mmol/L (98-108); Creatinine, Serum 0.88 mg/dL (0.70-1.20); EST Glomerular Filtration Rate 125 (>60); Estimated Creatinine Clearance 163.57 ml/min (50-250); Globulin 3.2 g/dL (2.2-4.2); Glucose 97 mg/dL (70-99); Potassium 3.3 mmol/L (3.3-5.1); Protein, Total 7.3 g/dL (5.9-8.4); Sodium Level 138 mmol/L (133-145); Total Bilirubin 1.09 mg/dL (0.00-1.30)
[2024-06-14 14:00] VITALS: PULSE 107; RESP 20
[2024-06-14 14:04] LABS: Acetaminophen (Tylenol) Level 7.1 ug/mL (8.0-19.0); Alcohol, Blood (Medical)-Serum < 10.1 mg/dL (<=10.0); Salicylate < 0.5 mg/dL (2.8-20.0)
--- NOTE | 2024-06-14 15:07 | EDS_ITS ---
HPI History of Present Illness Chief Complaint: Substance Abuse Detail of Chief Complaint: Substance abuse, methamphetamine Informant: patient Onset/Context/Timing Onset: Today Context: Sudden Onset Timing: Continuous Quality: Uncontrolled movement and anxiousness Location: Generalized Current Severity: Moderate Maximum Severity: Moderate Worsened by: Use of amphetamines Relieved by: Nothing Associated Symptoms Associated Symptoms: Racing thoughts Narrative Narrative: Patient is a 24-year-old male. He has prior history of drug abuse. Mother s tates he has similar presentation several years ago after using illicit drugs. He admits to snorting methamphetamine. He was drug-free for approximately 3 years. He states he made a mistake. He states his thoughts are racing. Nuys headache, double vision blurred vision loss of vision. Eyes gates ears decreased hearing. Has trouble with speech as swallowing. He denies chest discomfort, pressure tightness or heaviness. He denies shortness of breath, dyspnea exertion orthopnea. He denies abdominal pain, nausea, vomiting or diarrhea. He denies dysuria, frequency, urgency or hematuria. He denies aches in his arms or legs. Prior similar symptoms: Yes Recent Illness/Hospitalization: No PFSH PFSH Medical History Marijuana abuse Methamphetamine abuse Substance abuse Asthma Depression Anxiety Bipolar 1 disorder Home Medications ?Medication ?Instructions ?Recorded ?Last Taken ?Type albuterol 90 mcg/actuation aerosol 3 mcg inhalation Q4 H PRN PRN sob 04/06/21 Unknown History inhaler buspirone 5 mg tablet 5 mg PO TID 12/09/23 Unknown History hydroxyzine pamoate 25 mg capsule 25 mg PO TID PRN PRN HTN 12/09/23 Unknown History melatonin 1 mg tablet 1 mg PO QHS PRN PRN insomnia 12/09/23 Unknown History paroxetine HCl 30 mg tablet 40 mg PO DAILY 12/09/23 Un known History Allergy/AdvReac Type Severity Reaction Status Date / Time No Known Allergies Allergy Verified 06/14/24 11:57 Surgical History H/O left knee surgery Social History Smoking Status: Light Smoker (<10/day) ROS ROS ED Constitutional Constitutional ED: Denies chills, fever(s), subjective or sweats Eyes Eyes: Denies blurry vision or change in vision ENT ENT ED: Denies ear pain, rhinorrhea or sore throat Cardiovascular Cardiovascular: Denies chest pain, orthopnea or palpitations Respiratory/Chest Respiratory/Chest: Denies cough, dyspnea, dyspnea on exertion or orthopnea Gastrointestinal Gastrointestinal: Denies abdominal pain, diarrhea, melena, nausea or vomiting Genitourinary Genitourinary ED: Denies dysuria, hematuria or urinary frequency Musculoskeletal Musculoskeletal: Denies arthralgias or myalgias Integumentary Denies rash Neurologic Neurologic: Denies headache(s) or paresthesias Psychiatric Psychiatric: Reports anxiety; Denies suicidal ideation or suicidal thoughts Endocrine Endocrinology: Denies cold intolerance or heat intolerance Hematologic/Lymphatic Hematologic/Lymphatic: Reports systems reviewed and no addt'l complaints, except as documented EXAM Physical Exam Const Vital Signs: 06/14/24 11:50 06/14/24 12:01 06/14/24 14:00 Temperature 98.1 F Temperature Source Oral Pulse Rate 104 H 105 H 107 H Respiratory Rate 25 H 26 H 20 H Blood Pressure 147/129 H 121/96 H Blood Pressure Mean 135 104 Pulse Ox 97 97 Oxygen Delivery Method Room Air Room Air Positive well nourished and well developed Constitutional Narrative: BMI is 46.7. Patient blood pressure is elevated. He is tachycardic. He is unable to remain still. States his thoughts are racing General Appearance ED: well developed; Negative for pallor HEENT Negative for trauma or tenderness Eyes PERRL and EOMs intact bilaterally Eyes Narrative: There is no nystagmus. There is no evidence of trauma General Eye ED: Negative for pale conjunctiva or scleral icterus Neck no lymphadenopathy, supple and no JVD Chest Wall inspection of chest normal and palpation of chest normal Resp normal respiratory effort and clear to auscultation bilaterally Cardio regular rhythm, S1 normal heart sound, S2 normal heart sound and no murmurs Rate: tachycardic GI normal to inspection, nondistended, normoactive bowel sounds, non-tender, non- distended and no masses; Negative for hepatosplenomegaly Back/Spine no CVA tenderness Neuro oriented x3, CN's II-XII intact bilaterally and no sensory deficits noted Sensorium / Orientation: alert Motor Exam: strength 5/5 throughout Psych Psych Narrative: Patient is fidgety. He cannot remain still. Attitude: agitated Mood & Affect: anxious Skin no rashes or lesions noted, no wounds and skin turgor normal General Skin Exam: elasticity normal; Negative for jaundice or pallor MDM MDM MDM Narrative Medical decision making narrative: Patient presents with agitation after using methamphetamine. He is tachycardic for this reason. He denies suicidal homicidal thoughts. He has no other complaints. He requested psychiatric help. Consult was placed for case management. Michelle inform me that she is unable to evacuate him because he is not able to focus or sit still. She will try later. History & Record Review Discussion w/independent historian: Family (Mother called in. She informed me that he has done this before and it was related to illicit drug use.) Additional record(s) reviewed:: Prior ED visit (Seen November 2023 for accidental poisoning with adrenergic meds. He was seen January 2023 for dizziness. He was seen in October 2022 for laceration of his penis. He was evaluated for depression May 2017.) and Prior labs Lab Data Attestation: I reviewed the patient's lab results. Lab results narrative: White count is elevated 12.5 with slight shift. Suspect this is reactive to the illicit drug use. Since he stated he took acetaminophen talk screen was obtained that include salicylates, acetaminophen as well as drug screen and alcohol level. The acetaminophen, salicylate and ethanol are not significant. Drug screen is still pending. Labs: Laboratory Results - last 24 hr 06/14/24 12:03 WBC 12.5 H RBC 5.08 Hgb 15.1 Hct 43.3 MCV 85.2 MCH 29.7 MCHC 34.9 RDW Std Deviation 40.9 RDW Coeff of Tylor 13.2 Plt Count 253 MPV 11.8 Immature Gran % (Auto) 0.500 Neut % (Auto) 72.8 H Lymph % (Auto) 12.4 L Toombs % (Auto) 11.7 H Eos % (Auto) 1.9 Baso % (Auto) 0.7 Absolute Neuts (auto) 9.1 H Absolute Lymphs (auto) 1.55 Nucleated RBC % 0 Sodium 138 Potassium 3.3 Chloride 102 Carbon Dioxide 22.9 Anion Gap 13 BUN 16 Creatinine 0.88 Estim Creat Clear Calc 163.57 Est GFR (MDRD) Non-Af 125 BUN/Creatinine Ratio 17.7 Glucose 97 Calcium 9.5 Total Bilirubin 1.09 AST 30 ALT 23 Alkaline Phosphatase 75 Total Protein 7.3 Albumin 4.1 Globulin 3.2 Albumin/Globulin Ratio 1.3 Salicylates < 0.5 L Acetaminophen 7.1 L Ethyl Alcohol < 10.1 EKG Initial EKG: Attestation: I personally reviewed and interpreted this EKG as follows: Interpretation: Sinus Rhythm (Rate is 90. The EKG is normal. There are significant artifact due to his inability to sit still. Parables 132 ms. Cures duration under 2 ms. QT duration 370 ms. [place] is normal.) Prior: Unchanged (Compared to EKG December 09, 2023.) Management Discussion w/another healthcare provider: reed worker/Case management (For arrangements for outpatient counseling. Michelle, case management, spoke with mother. Apparently he does not drive. She will not drive him to counseling. She has a demented father she is caring for her and an 8-year-old autistic child she is caring for her. Michelle made multiple suggestions an) Discharge Plan Triage Chief Complaint: Substance Abuse Other Complaint: Overdose ED Provider: Anoop Boyce Dx/Rx/DC Orders Clinical Impression: Methamphetamine intoxication, Sinus tachycardia seen on quality assurance monitor body, Elevated blood-pressure reading without diagnosis of hypertension, History of depression Instructions: ED Drug Abuse Prescriptions: No Action albuterol 90 mcg/actuation Aerosol 3 mcg INHALATION Q4H PRN PRN (Reason: sob) buspirone 5 mg tablet 5 mg PO TID hydroxyzine pamoate 25 mg capsule 25 mg PO TID PRN PRN (Reason: HTN) paroxetine HCl 30 mg tablet 40 mg PO DAILY melatonin 1 mg tablet 1 mg PO QHS PRN PRN (Reason: insomnia) Primary Care Provider: Maurisio Ramirez Referrals: Maurisio Ramirez MD [Primary Care Provider] - Print Language: Lao Disposition Disposition: Home, Self Care
[2024-06-14 15:35] VITALS: BP 121/96; PULSE 107; RESP 20; TEMP 36.7; O2SAT 97
[2024-06-14 16:05] LABS: Amphetamine Urine PRESUMPTIVE POSITIVE (<1000 ng/mL); Barbiturate Urine NEGATIVE (< 200 ng/mL); Benzodiazepine Urine PRESUMPTIVE POSITIVE (< 200 ng/mL); Buprenorphine Urine NEGATIVE (< 200 ng/mL); Cocaine Urine NEGATIVE (< 300 ng/mL); Fentanyl, Urine NEGATIVE; Methadone Urine NEGATIVE (< 300 ng/mL); Opiates Urine NEGATIVE (< 300 ng/mL); Oxycodone, Urine NEGATIVE (< 100 ng/mL); PCP Urine NEGATIVE (< 25 ng/mL); THC Urine PRESUMPTIVE POSITIVE (< 50 ng/mL)
--- NOTE | 2024-06-14 17:36 | CM.ED ---
Social Work Patient presented to ED after meth use, initially unable to be assessed due to drug use. Patient was given time to sleep, SW reapproached patient to determine patient needs. Patient reports that he currently lives with his parents and two brothers. Patient reports that this is a good living situation. 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 Patient reports he has not been using meth for over a year and made a stupid mistake. Patients states that he feels he needs help with his head but feels that he is unable to receive any assistance due to his insurance. Patient denies HI and SI, denies auditory or visual hallucinations and denies increase in depressive symptoms. SW spoke with patients mother, with patients permission. Mother states that patient does not have any diagnosis of intellectual disabilities but did have an IEP in school. Mother confirmed that patient had been clean from meth for quite some time before recent use. SW asked mother if anyone in the home would be able to assist patient getting to counseling appointments as patient does not drive. Mom stated that she was not able to help as she is taking care of her father who has dementia and has an 8 year old with autism. Mother states there is noone else in the home that could take patient to appointments. SW contacted Salomon from [facility] [facility] [employer] and explained situation and asked if [facility] could assist someone through an online program who would required extra assistance. Salomon confirmed they would be able to help and was able to accept patient for online counseling program. Patient informed of same and reported he would attend program. No further needs at this time. Michelle Hook, [employer], [employer] APPLIANCE ASSEMBLER
== END 2024-06-14 15:36 | disposition home or self-care (01) ==
PROVIDERS: Emergency Provider Emergency Medicine; PCP Family Medicine; Visit Provider Emergency Medicine
DX: F15.988 Other stimulant use, unspecified with other stimulant-induced disorder (principal); R03.0 Elevated blood-pressure reading, without diagnosis of hypertension; R00.0 Tachycardia, unspecified; F41.9 Anxiety disorder, unspecified; F32.A Depression, unspecified; Z79.899 Other long term (current) drug therapy; F17.200 Nicotine dependence, unspecified, uncomplicated
CPT/HCPCS: 80053; 80143; 80179; 80307; 82077; 85025; 93005; 96374; 99285